=== PATIENT | female | born 1950 | race Caucasian/White ===

== ENCOUNTER 2016-11-27 14:24 | Outpatient (CLI) | payer MEDICARE, OTHER ==
[2016-11-27 18:15] LABS: BASOPHILS # (AUTO) 0.1 10^3/uL (0.0-0.1); BASOPHILS % (AUTO) 0.9 %; EOSINOPHILS % (AUTO) 0.7 %; HCT - HEMATOCRIT 41.5 % (37.0-47.0); HGB - HEMOGLOBIN 14.1 g/dL (12.0-16.0); LYMPHOCYTES # (AUTO) 1.4 10^3/uL (1.5-3.5); LYMPHOCYTES % (AUTO) 21.9 %; MEAN CORPUSCULAR HEMOGLOBIN 31.5 pg (27.0-31.0); MEAN CORPUSCULAR VOLUME 92.5 fL (81.0-99.0); MEAN PLATELET VOLUME 9.2 fL (7.9-10.8); MONOCYTES # (AUTO) 0.5 10^3/uL (0.0-1.0); NEUTROPHILS # (AUTO) 4.6 10^3/uL (1.5-6.6); NEUTROPHILS % (AUTO) 69.5 %; NUCLEATED RED BLOOD CELLS AUTO 0.1 /100WBC; RED BLOOD COUNT 4.49 10^6/uL (4.20-5.40); RED CELL DISTRIBUTION WIDTH 12.9 % (12.0-15.0); UNCORRECTED WHITE BLOOD COUNT 6.6 x10^3/uL; WHITE BLOOD COUNT 6.6 x10^3/uL (4.8-10.8)
[2016-11-27 18:35] LABS: ALBUMIN/GLOBULIN RATIO 1.9 (1.0-2.2); BILIRUBIN,TOTAL 0.6 mg/dL (0.2-1.0); BUN - BLOOD UREA NITROGEN 15 mg/dL (6-20); CALCIUM 9.8 mg/dL (8.5-10.3); CARBON DIOXIDE - CO2 26 mmol/L (21-32); CHLORIDE 105 mmol/L (101-111); CREATININE 0.7 mg/dL (0.4-1.0); GFR - MDRD 84 (>89); GLUCOSE 92 mg/dL (70-100); POTASSIUM 3.6 mmol/L (3.5-5.0); SODIUM 139 mmol/L (135-145); TOTAL PROTEIN 6.9 g/dL (6.7-8.2)
== END 2016-11-27 14:25 | disposition home or self-care (01) ==
LOC: LAB.F 14:24
PROVIDERS: ATTEND Internal Medicine
DX: F41.1 Generalized anxiety disorder (principal)
CPT/HCPCS: 36415; 80053; 84443; 85025

== ENCOUNTER 2016-11-30 13:33 | Outpatient (CLI) | payer MEDICARE, OTHER ==
--- NOTE | 2016-12-04 17:02 | Mammography Report ---
DIGITAL SCREENING MAMMOGRAM: 11/30/2016 CLINICAL INDICATION: A 66-year-old with history of benign biopsies for screening. COMPARISON: 07/2015, 07/2009. TECHNIQUE: Routine CC and MLO projections as well as bilateral laterally exaggerated craniocaudal vi ews were obtained of the breasts. The breasts again demonstrate heterogeneously dense fibroglandular parenchyma bilaterally. Post-biop sy changes are stable. Coarse and punctate, typically benign calcifications are present. No suspici ous masses, clustered microcalcifications, or regions of architectural distortion are identified. IMPRESSION: BENIGN FINDINGS. RECOMMENDATION: ROUTINE ANNUAL SCREENING UNLESS OTHERWISE CLINICALLY INDICATED. BIRADS CATEGORY: 2, BENIGN FINDINGS. STANDARD QUALIFYING STATEMENTS 1. This examination was reviewed with the aid of Computed-Aided Detection (CAD). 2. A negative or benign imaging report should not delay biopsy if clinically suspicious findings are present. Consider surgical consultation if warranted. More than 5% of cancers are not identified b y imaging. 3. Dense breasts may obscure an underlying neoplasm. JOB #: [id number] EXT JOB #:[id number]
== END 2016-11-30 13:34 | disposition home or self-care (01) ==
LOC: DI.S 13:33
PROVIDERS: ATTEND Internal Medicine
DX: Z12.31 Encounter for screening mammogram for malignant neoplasm of breast (principal)
CPT/HCPCS: 77067

== ENCOUNTER 2017-01-18 08:39 | Outpatient (CLI) | payer MEDICARE, OTHER ==
--- NOTE | 2017-01-18 09:55 | Ultrasound Report ---
COMPLETE ABDOMINAL ULTRASOUND: 01/18/2017 CLINICAL INDICATION: Epigastric pain. TECHNIQUE: Real-time scanning was performed with dealer compliance representative static images obtained. FINDINGS: The liver measures 15 cm. Multiple cysts are present, measuring up to 10.7 cm in diameter . The common bile duct measures 4 mm. No solid hepatic mass is seen. The gallbladder is normal. T he visualized pancreas is unremarkable. The right kidney measures 10.7 cm, and contains a 4.6 cm cor tical cyst. The left kidney measures 10.5 cm, and is unremarkable. The spleen measures 8.9 cm, and demonstrates normal echotexture. The abdominal aorta is normal in caliber. The inferior vena cava i s unremarkable. No free fluid is present. IMPRESSION: INCIDENTAL HEPATIC AND RENAL CYSTS. JOB #: [id number] EXT JOB #:[id number]
== END 2017-01-18 08:40 | disposition home or self-care (01) ==
LOC: DI 08:39
PROVIDERS: ATTEND Internal Medicine
DX: R10.13 Epigastric pain (principal)
CPT/HCPCS: 76700

== ENCOUNTER 2017-02-13 10:02 | Day surgery (SDC) | payer MEDICARE, OTHER ==
[2017-02-13] MEDS ORDERED: LACTATED RINGERS 1,000 ML IV ONE (10:35)
[2017-02-13] MEDS ORDERED: MIDAZOLAM 2 MG/2 ML VIAL IVP ONE (11:07)
[2017-02-13] MEDS ORDERED: fentaNYL 100 MCG/2 ML VIAL IVP ONE (11:07)
[2017-02-13 12:12] VITALS: BP 106/52
== END 2017-02-13 10:03 | disposition home or self-care (01) ==
LOC: SDS 10:02
PROVIDERS: ATTEND Internal Medicine
PROC: 0DB68ZX Excision of Stomach, Via Natural or Artificial Opening Endoscopic, Diagnostic (ICD-10-PCS; principal; 2017-02-13 11:00)
DX: K25.9 Gastric ulcer, unspecified as acute or chronic, without hemorrhage or perforation (principal); I10 Essential (primary) hypertension; Z87.891 Personal history of nicotine dependence
CPT/HCPCS: 43239; 88305; J7120

== ENCOUNTER 2017-11-26 11:05 | Outpatient (CLI) | payer MEDICARE, OTHER ==
[2017-11-26 17:33] LABS: BASOPHILS % (AUTO) 1.1 %; EOSINOPHILS % (AUTO) 0.9 %; HGB - HEMOGLOBIN 14.3 g/dL (12.0-16.0); LYMPHOCYTES # (AUTO) 1.1 10^3/uL (1.5-3.5); LYMPHOCYTES % (AUTO) 23.5 %; MEAN CORPUSCULAR HEMOGLOBIN 31.8 pg (27.0-31.0); MEAN CORPUSCULAR HGB CONC 33.6 g/dL (32.0-36.0); MEAN CORPUSCULAR VOLUME 94.5 fL (81.0-99.0); MEAN PLATELET VOLUME 9.3 fL (7.9-10.8); MONOCYTES # (AUTO) 0.4 10^3/uL (0.0-1.0); NEUTROPHILS % (AUTO) 66.5 %; PLT - PLATELET COUNT 184 10^3/uL (130-450); RED CELL DISTRIBUTION WIDTH 13.6 % (12.0-15.0); WHITE BLOOD COUNT 4.6 x10^3/uL (4.8-10.8)
[2017-11-26 18:34] LABS: PT - PROTHROMBIN TIME 11.5 secs (9.9-12.6)
[2017-11-26 19:24] LABS: ALBUMIN 4.1 g/dL (3.2-5.5); ALBUMIN/GLOBULIN RATIO 1.6 (1.0-2.2); ALKALINE PHOSPHATASE 39 IU/L (42-121); ALT ALANINE AMINOTRANSFERASE 18 IU/L (10-60); AST ASPARTATE AMINOTRANSFERASE 23 IU/L (10-42); BILIRUBIN,TOTAL 0.8 mg/dL (0.2-1.0); BUN - BLOOD UREA NITROGEN 24 mg/dL (6-20); CALCIUM 9.5 mg/dL (8.5-10.3); CARBON DIOXIDE - CO2 24 mmol/L (21-32); CHLORIDE 104 mmol/L (101-111); CHOL/HDL RATIO 3.4 (<4.4); CHOLESTEROL 247 mg/dL; CREATININE 0.6 mg/dL (0.4-1.0); GFR - MDRD 100 (>89); GLUCOSE 109 mg/dL (70-100); HDL CHOLESTEROL 73 mg/dL; LDL CHOLESTEROL,CALCULATED 161 mg/dL; LDL/HDL RATIO 2.2 (<4.4); SODIUM 138 mmol/L (135-145); TOTAL PROTEIN 6.6 g/dL (6.7-8.2); VLDL CHOLESTEROL 13 mg/dL
[2017-11-26 20:04] LABS: HB2 TOTAL 14.9 g/dL; HEMOGLOBIN A1C 0.52 g/dL; HEMOGLOBIN A1C % 5.3 % (4.6-6.2)
[2017-11-27 13:01] LABS: HEPATITIS B SURFACE ANTIGEN NON-REACTIVE (NON-REACTIVE)
[2017-11-27 14:07] LABS: HIV AG/AB 4TH GEN NON-REACTIVE (NON-REACTIVE)
[2017-11-27 15:10] LABS: HEPATITIS C ANTIBODY NON-REACTIVE (NON-REACTIVE)
== END 2017-11-26 11:06 | disposition home or self-care (01) ==
LOC: LAB.F 11:05
PROVIDERS: ATTEND Nurse Practitioner Family
DX: R42 Dizziness and giddiness (principal); Z11.59 Encounter for screening for other viral diseases; I10 Essential (primary) hypertension; Z13.1 Encounter for screening for diabetes mellitus; Z11.3 Encounter for screening for infections with a predominantly sexual mode of transmission; Z13.220 Encounter for screening for lipoid disorders; Z13.0 Encounter for screening for diseases of the blood and blood-forming organs and certain disorders involving the immune mechanism; T14.8XXA Other injury of unspecified body region, initial encounter
CPT/HCPCS: 36415; 80053; 80061; 81599; 83036; 83735; 84443; 85025; 85610; 86317; 86803; 87340; G0475; 83721; 86707; 87350; 87389

== ENCOUNTER 2017-12-23 10:07 | Outpatient (CLI) | payer MEDICARE, OTHER ==
--- NOTE | 2017-12-23 13:46 | Ultrasound Report ---
Reason: RIGHT RENAL CYST Procedure Date: 12/23/2017 Accession Number: [id number] / [id number] Procedure: US - Abdomen Limited CPT Code: FULL RESULT: EXAM: ABDOMEN ULTRASOUND LIMITED, RUQ EXAM DATE: 12/23/2017 10:58 AM. CLINICAL HISTORY: Right renal cyst. COMPARISON: ABDOMEN COMPLETE 01/18/2017 8:46 AM. TECHNIQUE: Real-time scanning was performed with static images obtained. FINDINGS: Liver: Liver background parenchyma demonstrates normal echotexture. Numerous cysts are seen throughout the liver most of which demonstrate septations. The largest cyst measures 10.4 x 6.2 x 8.9 cm and is septated. No definite solid components or vascular components are identified within these cysts. A 1 cm echogenic focus in the posterior right lobe of the liver is also seen. This is nonspecific but generally most often represents a hemangioma. The liver measures at least 16.8 cm. Main portal vein flow: Hepatopetal. Gallbladder: Normal. No stones, wall thickening, or sonographic Mercer's sign. Biliary System: CBD measures 5 mm. No intrahepatic or extrahepatic ductal dilatation. Other: The right kidney measures 10 cm and contains a dominant cyst measuring 4.0 x 4.1 x 4.3 cm without internal vascularity by color Doppler or an obvious solid component. Parenchymal flow to the kidneys preserved by color Doppler and there are no renal calculi and there is no hydronephrosis. IMPRESSION: Multicystic liver as well as a renal cyst. No vascularity or solid mass component is identified within the renal cyst or the hepatic cysts. RADIA
== END 2017-12-23 10:08 | disposition home or self-care (01) ==
LOC: DI 10:07
PROVIDERS: ATTEND Nurse Practitioner Family
DX: N28.1 Cyst of kidney, acquired (principal); K76.89 Other specified diseases of liver
CPT/HCPCS: 76705

== ENCOUNTER 2017-12-23 10:07 | Outpatient (CLI) | payer MEDICARE, OTHER ==
--- NOTE | 2017-12-24 14:37 | Mammography Report ---
Reason: SCREENING MAMMO Procedure Date: 12/23/2017 Accession Number: [id number] / [id number] Procedure: RANJITH - Screening Mammo Dig Bilat CPT Code: FULL RESULT: EXAM: Screening Mammo Dig Bilat DATE: 12/23/2017 3:56 PM CLINICAL HISTORY: 67-year-old female with history of early menses and prior surgical history of lumpectomy, one for a "tumor" and one for a cyst. TECHNIQUE: Bilateral CC and MLO views were obtained. COMPARISON: 11/30/2016, 07/11/2015, 08/23/2009. FINDINGS: The breasts demonstrate scattered fibroglandular densities bilaterally. Coarse typically benign calcifications are seen in the left breast. A biopsy clip is seen in the left breast. No suspicious masses, clustered microcalcifications, or regions of architectural distortion are identified. IMPRESSION: Benign findings RECOMMENDATION: Routine annual screening unless otherwise clinically indicated. BIRADS CATEGORY 2: Benign findings STANDARD QUALIFYING STATEMENTS: 1. This examination was not reviewed with the aid of Computer-Aided Detection (CAD). 2. A negative or benign imaging report should not delay biopsy if clinically suspicious findings are present. Consider surgical consultation if warrented. More than 5% of cancers are not identified by imaging. 3. Dense breasts may obscure an underlying neoplasm.
== END 2017-12-23 10:08 | disposition home or self-care (01) ==
LOC: DI 10:07
PROVIDERS: ATTEND Nurse Practitioner Family
DX: Z12.31 Encounter for screening mammogram for malignant neoplasm of breast (principal)
CPT/HCPCS: 77067

== ENCOUNTER 2018-08-21 09:54 | Outpatient (CLI) | payer MEDICARE, OTHER ==
--- NOTE | 2018-08-21 18:37 | XRAY Report ---
Reason: PAIN IN RIGHT ANKLE AND JOINTS OF RIGHT FOOT Procedure Date: 08/21/2018 Accession Number: [id number] / [id number] Procedure: XR - Ankle 2 View RT CPT Code: FULL RESULT: EXAM: RIGHT ANKLE RADIOGRAPHY EXAM DATE: 08/21/2018 09:57 AM. CLINICAL HISTORY: PAIN IN RIGHT ANKLE AND JOINTS OF RIGHT FOOT. COMPARISON: None. TECHNIQUE: 2 views. FINDINGS: Lack of an oblique view reduces exam sensitivity and specificity. Bones: No acute displaced fractures or suspicious bony lesion. Joints: Ankle mortise appears intact on these nonstressed images. Soft Tissues: No significant soft tissue swelling. IMPRESSION: No acute osseous abnormality demonstrated. RADIA
== END 2018-08-21 09:55 | disposition home or self-care (01) ==
LOC: DI 09:54
PROVIDERS: ATTEND Nurse Practitioner Family
DX: M25.571 Pain in right ankle and joints of right foot (principal)

== ENCOUNTER 2019-03-28 12:50 | Outpatient (CLI) | payer MEDICARE, OTHER ==
--- NOTE | 2019-03-29 05:55 | MRI Report ---
Reason: MIGRAINE WITH AURA Procedure Date: 03/28/2019 Accession Number: [id number] / [id number] Procedure: MRI - Brain W/O CPT Code: Final Report FULL RESULT: EXAM: MRI BRAIN WITHOUT CONTRAST EXAM DATE: 03/28/2019 01:53 PM. CLINICAL HISTORY: Headaches and dizziness. COMPARISON: None. TECHNIQUE: Multiplanar, multisequence T1-weighted and fluid-sensitive MR sequences of the brain were performed. Sequences optimized for routine evaluation. Other: None. IV Contrast: None. FINDINGS: Brain Volume: There is moderate generalized cerebral volume loss, in keeping with the patient's age. Parenchyma/Dura: No mass, acute infarct or hemorrhage. Mild scattered areas of T2 hyperintensity are seen in the subcortical, deep, and periventricular white matter of the bilateral cerebral hemispheres, typically reflecting chronic microvascular ischemic changes in a patient this age. A few chronic lacunar infarcts are noted in the bilateral cerebellar hemispheres and in the moses. There is no evidence of a Chiari type I malformation. Ventricles/Cisterns: No hydrocephalus. No abnormal extra-axial fluid collection or hemorrhage. Orbits: Symmetric and unremarkable. Sella Turcica: The pituitary gland, cavernous sinuses, suprasellar cistern and optic chiasm are unremarkable. IAC: Symmetric and unremarkable. Vasculature: Normal signal flow void is seen in the major arterial structures at the skull base. Sinuses: No acute appearing sinus disease. Bones: No focal pathologic appearing marrow signal changes. IMPRESSION: 1. No acute infarct, intracranial mass lesion, or hemorrhage. 2. Mild to moderate senescent changes with a few chronic lacunar infarcts. RADIA
== END 2019-03-28 12:51 | disposition home or self-care (01) ==
LOC: DI 12:50
PROVIDERS: ATTEND Nurse Practitioner Family
DX: G43.109 Migraine with aura, not intractable, without status migrainosus (principal); Z86.73 Personal history of transient ischemic attack (TIA), and cerebral infarction without residual deficits
CPT/HCPCS: 70551

== ENCOUNTER 2019-05-11 10:31 | Emergency (ER) | payer MEDICARE, OTHER ==
[2019-05-11 11:07] LABS: BASOPHILS # (AUTO) 0.1 10^3/uL (0.0-0.1); BASOPHILS % (AUTO) 0.6 %; EOSINOPHILS # (AUTO) 0.2 10^3/uL (0.0-0.7); EOSINOPHILS % (AUTO) 2.6 %; HGB - HEMOGLOBIN 13.3 g/dL (12.0-16.0); LYMPHOCYTES # (AUTO) 1.2 10^3/uL (1.5-3.5); LYMPHOCYTES % (AUTO) 13.7 %; MEAN CORPUSCULAR HGB CONC 33.1 g/dL (32.0-36.0); MEAN CORPUSCULAR VOLUME 93.7 fL (81.0-99.0); MEAN PLATELET VOLUME 10.8 fL (7.9-10.8); MONOCYTES # (AUTO) 0.8 10^3/uL (0.0-1.0); MONOCYTES % (AUTO) 9.3 %; NEUTROPHILS # (AUTO) 6.4 10^3/uL (1.5-6.6); NEUTROPHILS % (AUTO) 73.5 %; PLT - PLATELET COUNT 178 10^3/uL (130-450); RED BLOOD COUNT 4.29 10^6/uL (4.20-5.40); RED CELL DISTRIBUTION WIDTH 12.8 % (12.0-15.0); WHITE BLOOD COUNT 8.8 x10^3/uL (4.8-10.8)
[2019-05-11 11:17] LABS: ALBUMIN 3.7 g/dL (3.2-5.5); ALBUMIN/GLOBULIN RATIO 1.3 (1.0-2.2); BILIRUBIN,TOTAL 0.7 mg/dL (0.2-1.0); CALCIUM 9.1 mg/dL (8.5-10.3); CREATININE 0.6 mg/dL (0.4-1.0); TOTAL PROTEIN 6.6 g/dL (6.7-8.2)
--- NOTE | 2019-05-11 11:51 | ED Physician Documentation ---
PD HPI FEMALE - Stated complaint Stated Complaint: FEMALE - Chief complaint Chief Complaint: Abd Pain - History obtained from History obtained from: Patient - History of Present Illness Timing - onset: Yesterday Timing - details: Gradual onset Associated symptoms: No: Fever, Dysuria Recently seen: Not recently seen - Additional information Additional information: This is a 68-year-old woman who presents with complaints that she started to have abdominal cramping 2 days ago and then had 8 hours worth of chills yesterday she checked her temperature and it was "low". She was having waves of crampy intense pain in her abdomen now about a 6 out of 10 dull, ache. She was only able to give a little bit of poop. No she does have a history of diverticulitis with 3 bowel resections most recent surgery was 10 years ago. She is had no nausea or vomiting. No dysuria although she was sitting at her in her chair and felt a burning sensation in the perineum this morning. She is not seen blood in the urine or stool. She denies sore throat stuffy nose or cough. She reports chronic dizziness but no loss of consciousness. She made the decision not to eat today because she was concerned she might be obstructed. Review of Systems Constitutional: reports: Chills. denies: Fever Ears: denies: Ear pain Nose: denies: Rhinorrhea / runny nose Throat: denies: Sore throat Respiratory: denies: Cough GI: reports: Abdominal Pain, Constipation. 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 Derm: Skin cancer surgery - Present Medications Home Medications: Ambulatory Orders Medication Instructions Recorded Confirmed Triamterene/Hydrochlorothiazid 1 DAILY 02/13/17 [Triamterene-Hctz 37.5-25 mg Cp] lisinopriL [Lisinopril] 1 DAILY 02/13/17 Amoxicillin/Potassium Clav 2 each PO BID #40 tab.er.12h 05/11/19 [Augmentin Xr 1,000-62.5 Tab] Ondansetron Odt [Zofran] 4 mg TL Q6H PRN #10 tablet 05/11/19 - Allergies Allergies/Adverse Reactions: Allergies Allergy/AdvReac Type Severity Reaction Status Date / Time ciprofloxacin [From Cipro] AdvReac Anaphylaxis Verified 05/11/19 10:40 ciprofloxacin HCl * AdvReac Anaphylaxis Verified 05/11/19 10:40 [From Cipro] codeine AdvReac Nausea Verified 05/11/19 10:40 metronidazole [From Flagyl] AdvReac Anaphylaxis Verified 05/11/19 10:40 - Social History Does the pt smoke?: No Smoking Status: Former smoker Does the pt drink ETOH?: No Does the pt have substance abuse?: No - Immunizations Immunizations are current?: Yes - POLST Patient has POLST: No PD ED PE NORMAL - Vitals Vital signs reviewed: Yes - General General: Alert and oriented X 3, No acute distress, Well developed/nourished, Other (Pleasant 68-year-old woman is not in any acute distress.) - HEENT HEENT: Atraumatic, PERRL, Moist mucous membranes - Neck Neck: Supple, no meningeal sign, No adenopathy - Cardiac Cardiac: RRR, No murmur, Strong equal pulses - Respiratory Respiratory: No respiratory distress, Clear bilaterally - Abdomen Abdomen: Soft, Non tender, Other (High-pitched tinkling bowel sounds.) - Derm Derm: Normal color, Warm and dry, No rash - Neuro Neuro: Alert and oriented X 3, public aid eligibility assistant 2-12 intact, No motor deficit, No sensory deficit, Normal speech - Psych Psych: Normal mood, Normal affect Results - Vitals Vitals: Vital Signs - 24 hr 05/11/19 05/11/19 05/11/19 10:38 11:35 13:40 Temperature 36.9 C 37.2 C 37.1 C Heart Rate 87 76 76 Respiratory 18 18 16 Rate Blood Pressure 116/72 113/69 119/80 O2 Saturation 97 99 97 Oxygen O2 Source Room air - Labs Labs: Laboratory Tests 05/11/19 05/11/19 05/11/19 10:55 10:55 12:10 WBC 8.8 RBC 4.29 Hgb 13.3 Hct 40.2 MCV 93.7 MCH 31.0 MCHC 33.1 RDW 12.8 Plt Count 178 MPV 10.8 Neut # (Auto) 6.4 Lymph # (Auto) 1.2 L [place] # (Auto) 0.8 Eos # (Auto) 0.2 Baso # (Auto) 0.1 Absolute Nucleated RBC 0.00 Nucleated RBC % 0.0 Sodium 141 Potassium 3.7 Chloride 105 Carbon Dioxide 26 Anion Gap 10.0 BUN 16 Creatinine 0.6 Estimated GFR (MDRD) 99 Glucose 139 H Calcium 9.1 Total Bilirubin 0.7 AST 21 ALT 19 Alkaline Phosphatase 45 Total Protein 6.6 L Albumin 3.7 Globulin 2.9 Albumin/Globulin Ratio 1.3 Lipase 30 Urine Color DARK YELLOW Urine Clarity CLEAR Urine pH 5.5 Ur Specific [place] >=1.030 H Urine Protein NEGATIVE Urine Glucose (UA) NEGATIVE Urine Ketones TRACE Urine Occult Blood MODERATE H Urine Nitrite NEGATIVE Urine Bilirubin NEGATIVE Urine Urobilinogen 0.2 (NORMAL) Ur Leukocyte Esterase NEGATIVE Urine RBC 6-10 H Urine WBC 0-3 Ur Squamous Epith Cells FEW Squamous Urine Crystals 6-10 Calcium Oxalate Urine Bacteria Few Urine Mucus Marked Strands Ur Microscopic Review INDICATED Urine Culture Comments NOT INDICATED PD MEDICAL DECISION MAKING - ED course Complexity details: reviewed results, re-evaluated patient, d/w patient ED course: The patient has a normal white blood cell count. Her urine is very concentrated. Her CT did show some inflammatory changes consistent with diverticulitis but no obvious abscess pocket. She was given Zosyn IV. Will discharge on Augmentin and she is going to monitor closely at home with a bland diet. If she is not showing improvement in 48 hours she will sooner if she develops fever, she is vomiting and cannot keep anything down, has blood in the stool or has increasing pain. Departure - Departure Disposition: 01 Home, Self Care Clinical Impression: Diverticulitis large intestine Qualifiers: Diverticulitis bleeding: without bleeding Diverticulitis complication: without perforation or abscess Qualified Code(s): K57.32 - Diverticulitis of large intestine without perforation or abscess without bleeding Condition: Good Instructions: Diverticulitis Dc, ED Diverticulitis Follow-Up: JESENIA DENNIS ARNP [Primary Care Provider] - Prescriptions: Amoxicillin/Potassium Clav [Augmentin Xr 1,000-62.5 Tab] 2 each PO BID #40 tab.er.12h Ondansetron Odt [Zofran] 4 mg TL Q6H PRN #10 tablet PRN Reason: Nausea / Vomiting Comments: Take the antibiotic twice a day as prescribed. I would highly recommend that you use probiotics while you are taking the antibiotic and for 2 weeks afterwards. May use ibuprofen for discomfort. I have provided a prescription for Zofran if needed for some nausea. Given your significant past history with the diverticulitis I would recommend a recheck with your primary care provider in 2 to 3 days. Follow-up for sure if you are not feeling better in 48 hours or sooner if you have increasing pain, you are vomiting and cannot keep anything down, you see blood in your stool or develop a fever.
[2019-05-11] MEDS ORDERED: IOVERSOL 320 100 ML VIAL IVP ONE ×2 (12:20→13:20)
[2019-05-11 12:30] LABS: GLUCOSE, URINE (UA) NEGATIVE (NEGATIVE); KETONES,URINE (UA) TRACE mg/dL (NEGATIVE); LEUKOCYTE ESTERASE, URINE NEGATIVE (NEGATIVE); NITRITE,URINE NEGATIVE (NEGATIVE); OCCULT BLOOD,URINE MODERATE (NEGATIVE); PH,URINE 5.5 PH (5.0-7.5); PROTEIN,URINE NEGATIVE (NEGATIVE); UROBILINOGEN,URINE 0.2 (NORMAL) E.U./dL (NORMAL)
[2019-05-11 12:34] LABS: BILIRUBIN,URINE NEGATIVE (NEGATIVE); CLARITY,URINE CLEAR (CLEAR); ICTOTEST,URINE NEGATIVE
[2019-05-11 12:38] LABS: BACTERIA,URINE Few /HPF (None Seen); MUCUS,URINE Marked Strands; SQUAMOUS EPITHELIAL CELL,UR FEW Squamous (<= Few)
[2019-05-11 12:39] LABS: CRYSTALS,URINE 6-10 Calcium Oxalate /LPF
--- NOTE | 2019-05-11 13:17 | CT Report ---
Reason: abd pain Procedure Date: 05/11/2019 Accession Number: [id number] / [id number] Procedure: CT - Abdomen/Pelvis W CPT Code: Final Report FULL RESULT: EXAM: CT ABDOMEN AND PELVIS EXAM DATE: 05/11/2019 12:52 PM. CLINICAL HISTORY: Abd pain. History of diverticulitis, bowel surgery, hernia repair, hepatic cysts, and renal cysts. COMPARISONS: None. TECHNIQUE: Routine helical CT imaging was performed through the abdomen and pelvis. IV contrast: OPTI 320 100ML. Enteric contrast: No. Reconstructions: Coronal and sagittal. In accordance with CT protocol optimization, one or more of the following dose reduction techniques were utilized for this exam: automated exposure control, adjustment of mA and/or KV based on patient size, or use of iterative reconstructive technique. FINDINGS: Lung Bases: Unremarkable. Liver: Multiple cysts and at least one hemangioma. Otherwise unremarkable. Gallbladder/Bile Ducts: Surgically absent. No ductal dilation. Spleen: Small cyst or hemangioma. Otherwise unremarkable. Pancreas: Normal. Adrenal Glands: Normal. Kidneys: Multiple cysts. Otherwise unremarkable. No hydronephrosis. Peritoneal Cavity/Bowel: Moderate to marked colonic diverticulosis with mild wall thickening and hazy infiltration of fat adjacent to the sigmoid colon. No localized fluid collection. Minimal free fluid in the pelvis. No free air, bowel dilation, or lymphadenopathy. Postoperative changes. Pelvic Organs: Decompressed urinary bladder. Absent uterus. Vasculature: No aneurysms or other significant abnormality. Bones: No significant abnormality. Other: Postoperative changes of anterior abdominal wall. IMPRESSION: 1. Moderate to marked diverticulosis with mild acute diverticulitis. 2. Postoperative and other chronic findings as noted. RADIA
[2019-05-11] MEDS ORDERED: PIPERACILLIN/TAZOBACTAM 3.375 GM in SODIUM CHLORIDE 0.9% MINIBAG 100 ML IV STA (13:34)
[2019-05-11 14:27] VITALS: BP 105/72
== END 2019-05-11 14:26 | disposition home or self-care (01) ==
LOC: ED 10:31
DX: K57.32 Diverticulitis of large intestine without perforation or abscess without bleeding (principal); I10 Essential (primary) hypertension; Z87.891 Personal history of nicotine dependence
CPT/HCPCS: 36415; 74177; 80053; 81001; 83690; 85025; 96365; 99284; Q9967; 81003; 87086

== ENCOUNTER 2019-07-22 07:46 | Emergency (ER) | payer MEDICARE, OTHER ==
--- NOTE | 2019-07-22 08:25 | ED Physician Documentation ---
History of Present Illness - Stated complaint Stated Complaint: STROKE LIKE SYMPTOMS - Chief complaint Chief Complaint: Neuro - History obtained from History obtained from: Patient - History of Present Illness Timing: Today Pain level max: 0 Pain level now: 0 - Additonal information Additional information: 68-year-old female presents to the emergency department stating that she felt like she was getting a migraine today and had a visual aura. She took an Imitrex, few minutes later both of her legs felt very heavy followed by both of her arms. She sat down. She had tingling in the perioral area as well. This lasted approximately 10 minutes and then her symptoms resolved. She came in for evaluation. She did not have any syncope. No loss of consciousness. No urinary incontinence. No back pain. Nothing makes it better or worse. Nursing notes state urinary incontinence, but I confirmed twice with the patient that this did not occur. Review of Systems Ten Systems: 10 systems reviewed and negative Constitutional: denies: Fever, Chills, Myalgias Ears: denies: Ear pain Nose: denies: Rhinorrhea / runny nose, Congestion Cardiac: denies: Chest pain / pressure Respiratory: denies: Dyspnea, Cough GI: denies: Nausea, Vomiting, Diarrhea : denies: Dysuria Skin: denies: Rash Musculoskeletal: denies: Neck pain, Back pain Neurologic: denies: Headache PD PAST MEDICAL HISTORY - Past Medical History Past Medical History: Yes Cardiovascular: Hypertension, Arrhythmia Respiratory: None Neuro: CVA, Migraines, Seizure disorder Endocrine/Autoimmune: None GI: Diverticulitis, Other : None HEENT: None Psych: None Musculoskeletal: None Derm: Eczema - Past Surgical History Past Surgical History: Yes General: Bowel surgery 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 Derm: Skin cancer surgery - Present Medications Home Medications: Ambulatory Orders Medication Instructions Recorded Confirmed Amlodipine Besylate [Norvasc] 2.5 mg PO DAILY 07/22/19 07/22/19 Aspirin Chewable [St Andi 81 mg PO DAILY 07/22/19 07/22/19 Aspirin] Atorvastatin Calcium 40 mg PO DAILY 07/22/19 07/22/19 Hyoscyamine [Levsin] 0.125 mg PO PRN PRN 07/22/19 07/22/19 Ibuprofen [Motrin] 600 mg PO Q6H PRN 04/22/20 04/22/20 SUMAtriptan succinate [Sumatriptan 50 mg PO PRN PRN 07/22/19 07/22/19 Succinate] - Allergies Allergies/Adverse Reactions: Allergies Allergy/AdvReac Type Severity Reaction Status Date / Time ciprofloxacin [From Cipro] AdvReac Anaphylaxis Verified 07/22/19 08:06 ciprofloxacin HCl * AdvReac Anaphylaxis Verified 07/22/19 08:06 [From Cipro] codeine AdvReac Nausea Verified 07/22/19 08:06 metronidazole [From Flagyl] AdvReac Anaphylaxis Verified 07/22/19 08:06 - Social History Does the pt smoke?: No Smoking Status: Never smoker Does the pt drink ETOH?: No Does the pt have substance abuse?: No - Immunizations Immunizations are current?: Yes - POLST Patient has POLST: No PD ED PE NORMAL - Vitals Vital signs reviewed: Yes - General General: Alert and oriented X 3, No acute distress - HEENT HEENT: Atraumatic, PERRL, EOMI, Moist mucous membranes - Neck Neck: Supple, no meningeal sign, No bony TTP - Cardiac Cardiac: RRR, Strong equal pulses - Respiratory Respiratory: No respiratory distress, Clear bilaterally - Abdomen Abdomen: Soft, Non tender, Non distended - Back Back: No spinal TTP - Derm Derm: Warm and dry, No rash - Extremities Extremities: No calf tenderness / cord - Neuro Neuro: Alert and oriented X 3, 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, No motor deficit, No sensory deficit, Normal speech Eye Opening: Spontaneous Motor: Obeys Commands Verbal: Oriented GCS Score: 15 - Psych Psych: Normal mood, Normal affect Results - Vitals Vitals: Vital Signs - 24 hr 07/22/19 07/22/19 07/22/19 08:01 08:11 09:00 Temperature 36.0 C L Heart Rate 62 64 59 L Respiratory 16 12 16 Rate Blood Pressure 159/91 H 142/82 H 134/74 H O2 Saturation 99 99 99 07/22/19 10:01 Temperature Heart Rate 59 L Respiratory 16 Rate Blood Pressure 124/78 O2 Saturation 99 Oxygen O2 Source Room air - EKG (time done) 0754 Rate: Rate (enter#) (59) Rhythm: NSR [place]: Normal Intervals: Normal SC Ischemia: Q waves (V1, V2), T wave inversion (3, aVF), Other (Otherwise normal ST segments) - Labs Labs: Laboratory Tests 07/22/19 07/22/19 07/22/19 08:03 08:03 08:03 WBC 5.9 RBC 4.66 Hgb 14.6 Hct 43.9 MCV 94.2 MCH 31.3 H MCHC 33.3 RDW 13.0 Plt Count 191 MPV 10.8 Neut # (Auto) 3.9 Lymph # (Auto) 1.2 L [place] # (Auto) 0.5 Eos # (Auto) 0.2 Baso # (Auto) 0.1 Absolute Nucleated RBC 0.00 Nucleated RBC % 0.0 Sodium 141 Potassium 3.4 L Chloride 106 Carbon Dioxide 26 Anion Gap 9.0 BUN 17 Creatinine 0.7 Estimated GFR (MDRD) 83 L Glucose 109 H POC Whole Bld Glucose Calcium 9.0 Magnesium 2.2 Total Bilirubin 0.8 AST 29 ALT 32 Alkaline Phosphatase 73 Troponin I High Sens 5.5 Total Protein 6.7 Albumin 4.1 Globulin 2.6 Albumin/Globulin Ratio 1.6 Lipase 60 H Urine Color Urine Clarity Urine pH Ur Specific [place] Urine Protein Urine Glucose (UA) Urine Ketones Urine Occult Blood Urine Nitrite Urine Bilirubin Urine Urobilinogen Ur Leukocyte Esterase Urine RBC Urine WBC Ur Squamous Epith Cells Urine Bacteria Urine Casts Ur Microscopic Review Urine Culture Comments 07/22/19 07/22/19 08:11 08:56 WBC RBC Hgb Hct MCV MCH MCHC RDW Plt Count MPV Neut # (Auto) Lymph # (Auto) [place] # (Auto) Eos # (Auto) Baso # (Auto) Absolute Nucleated RBC Nucleated RBC % Sodium Potassium Chloride Carbon Dioxide Anion Gap BUN Creatinine Estimated GFR (MDRD) Glucose POC Whole Bld Glucose 100 Calcium Magnesium Total Bilirubin AST ALT Alkaline Phosphatase Troponin I High Sens Total Protein Albumin Globulin Albumin/Globulin Ratio Lipase Urine Color LIGHT YELLOW Urine Clarity CLEAR Urine pH 6.0 Ur Specific [place] <=1.005 Urine Protein NEGATIVE Urine Glucose (UA) NEGATIVE Urine Ketones NEGATIVE Urine Occult Blood SMALL H Urine Nitrite NEGATIVE Urine Bilirubin NEGATIVE Urine Urobilinogen 0.2 (NORMAL) Ur Leukocyte Esterase NEGATIVE Urine RBC 0-5 Urine WBC 0-3 Ur Squamous Epith Cells FEW Squamous Urine Bacteria Few Urine Casts 0-2 Hyaline Casts Ur Microscopic Review INDICATED Urine Culture Comments NOT INDICATED - Rads (name of study) Head CT Radiology: Prelim report reviewed, EMP read contemporaneously, See rad report (No acute intracranial abnormality. 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 No focal neurological deficits. No one-sided deficits. No signs of stroke. No signs of acute coronary syndrome. Symptoms resolved prior to arrival in the emergency department. We will have her follow-up with her doctor for further care. Patient counseled regarding signs and symptoms for which I believe and urgent re-evaluation would be necessary. Patient with good understanding of and agreement to plan and is comfortable going home at this time This document was made in part using voice recognition software. While efforts are made to proofread this document, sound alike and grammatical errors may occur. Departure - Departure Disposition: 01 Home, Self Care Clinical Impression: Paresthesia Migraine Qualifiers: Migraine type: with aura Status migrainosus presence: without status migrainosus Intractability: not intractable Qualified Code(s): G43.109 - Migraine with aura, not intractable, without status migrainosus Condition: Good Instructions: ED Paraesthesias Follow-Up: JESENIA DENNIS ARNP [Primary Care Provider] - Within 1 week Comments: Follow-up with your doctor for further care. Continue your medications at home. Return if you worsen. Discharge Date/Time: 07/22/19 10:02 NIHSS - Time Time: 08:07 - Level of Consciousness Level of consciousness: (0) Alert, Keenly responsive LOC Questions: (0) Answers both Q's correct LOC Commands: (0) Performs both correctly - Gaze Best Gaze: (0) Normal - Visual Visual: (0) No loss - Facial Palsy Facial Palsy: (0) Normal, symmetrical movement - Motor Arms (both separate) Motor Arm (right): (0) No drift Motor Arm (left): (0) No drift - Motor Legs (both separate) Motor Leg (right): (0) No drift Motor Leg (left): (0) No drift - Limb Ataxia Limb Ataxia: (0) Absent - Sensory Sensory: (0) Normal - Best Language Best Language: (0) No aphasia - Dysarthria Dysarthria: (0) Normal - Extinction and Inattention (formally neg Extinction and inattention: (0) No abnormality - Total Score/Results Total Score/Result: 0
[2019-07-22 08:27] LABS: BASOPHILS # (AUTO) 0.1 10^3/uL (0.0-0.1); EOSINOPHILS # (AUTO) 0.2 10^3/uL (0.0-0.7); EOSINOPHILS % (AUTO) 3.2 %; HGB - HEMOGLOBIN 14.6 g/dL (12.0-16.0); LYMPHOCYTES # (AUTO) 1.2 10^3/uL (1.5-3.5); MEAN CORPUSCULAR HEMOGLOBIN 31.3 pg (27.0-31.0); MEAN CORPUSCULAR HGB CONC 33.3 g/dL (32.0-36.0); MEAN CORPUSCULAR VOLUME 94.2 fL (81.0-99.0); MEAN PLATELET VOLUME 10.8 fL (7.9-10.8); MONOCYTES # (AUTO) 0.5 10^3/uL (0.0-1.0); MONOCYTES % (AUTO) 8.5 %; NEUTROPHILS # (AUTO) 3.9 10^3/uL (1.5-6.6); NEUTROPHILS % (AUTO) 66.1 %; PLT - PLATELET COUNT 191 10^3/uL (130-450); RED BLOOD COUNT 4.66 10^6/uL (4.20-5.40); WHITE BLOOD COUNT 5.9 x10^3/uL (4.8-10.8)
[2019-07-22 08:36] LABS: ALBUMIN 4.1 g/dL (3.2-5.5); ALBUMIN/GLOBULIN RATIO 1.6 (1.0-2.2); BILIRUBIN,TOTAL 0.8 mg/dL (0.2-1.0); CREATININE 0.7 mg/dL (0.4-1.0); MAGNESIUM 2.2 mg/dL (1.7-2.8); TOTAL PROTEIN 6.7 g/dL (6.7-8.2)
--- NOTE | 2019-07-22 08:50 | XRAY Report ---
Reason: weakness Procedure Date: 07/22/2019 Accession Number: [id number] / [id number] Procedure: XR - Chest 1 View X-Ray CPT Code: 22125 Final Report FULL RESULT: EXAM: CHEST RADIOGRAPHY EXAM DATE: 07/22/2019 08:32 AM. CLINICAL HISTORY: Weakness. COMPARISON: None. TECHNIQUE: 1 view. FINDINGS: Lungs/Pleura: Moderate hyperinflation. No consolidations identified. Mediastinum: Within exam limitations, the cardiomediastinal contour is normal. Other: None. IMPRESSION: No lung consolidation is identified. Hyperinflation. RADIA
--- NOTE | 2019-07-22 08:54 | CT Report ---
Reason: paresthesias Procedure Date: 07/22/2019 Accession Number: [id number] / [id number] Procedure: CT - HEAD WO CPT Code: Final Report FULL RESULT: EXAM: CT HEAD EXAM DATE: 07/22/2019 08:37 AM. CLINICAL HISTORY: Paresthesias. COMPARISON: HEAD WO 07/22/2019 8:24 AM BRAIN W/O 03/28/2019 1:21 PM. TECHNIQUE: Multiaxial CT images were obtained from the foramen magnum to the vertex. Reformats: Sagittal and coronal. IV contrast: None. In accordance with CT protocol optimization, one or more of the following dose reduction techniques were utilized for this exam: automated exposure control, adjustment of mA and/or KV based on patient size, or use of iterative reconstructive technique. FINDINGS: No acute intracranial hemorrhage or midline shift. No mass-effect. Stable mild and symmetric cortical atrophic changes. Tiny old lacunar infarcts are again noted of the cerebellum, better seen on comparison MRI. A lacunar infarct of the moses on previous MRI is not well seen on current CT. The calvarium appears intact. Imaged portions of the facial sinuses appear clear. IMPRESSION: No acute intracranial hemorrhage or mass-effect identified. 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 If additional imaging indicated, follow-up MRI may be helpful for further evaluation. RADIA
[2019-07-22 09:07] LABS: BILIRUBIN,URINE NEGATIVE (NEGATIVE); GLUCOSE, URINE (UA) NEGATIVE (NEGATIVE); KETONES,URINE (UA) NEGATIVE (NEGATIVE); LEUKOCYTE ESTERASE, URINE NEGATIVE (NEGATIVE); NITRITE,URINE NEGATIVE (NEGATIVE); OCCULT BLOOD,URINE SMALL (NEGATIVE); PROTEIN,URINE NEGATIVE (NEGATIVE); UROBILINOGEN,URINE 0.2 (NORMAL) E.U./dL (NORMAL)
[2019-07-22 09:23] LABS: CLARITY,URINE CLEAR (CLEAR)
[2019-07-22 09:24] LABS: BACTERIA,URINE Few /HPF (None Seen); RBC,URINE 0-5 /HPF (0-5); SQUAMOUS EPITHELIAL CELL,UR FEW Squamous (<= Few)
[2019-07-22 09:25] LABS: CASTS, URINE 0-2 Hyaline Casts /LPF
[2019-07-22 10:02] VITALS: BP 124/78
== END 2019-07-22 10:02 | disposition home or self-care (01) ==
LOC: ED 07:46
DX: G43.109 Migraine with aura, not intractable, without status migrainosus (principal); R20.2 Paresthesia of skin; I10 Essential (primary) hypertension; I49.9 Cardiac arrhythmia, unspecified; G40.909 Epilepsy, unspecified, not intractable, without status epilepticus; Z86.73 Personal history of transient ischemic attack (TIA), and cerebral infarction without residual deficits; Z79.82 Long term (current) use of aspirin; Z79.1 Long term (current) use of non-steroidal anti-inflammatories (NSAID)
CPT/HCPCS: 36415; 70450; 71045; 80053; 81001; 81003; 83690; 83735; 84484; 85025; 87086; 93005; 99284

== ENCOUNTER 2019-07-30 12:14 | Emergency (ER) | payer MEDICARE, OTHER ==
--- NOTE | 2019-07-30 12:37 | ED Physician Documentation ---
PD HPI CHEST PAIN - Stated complaint Stated Complaint: LOW PULSE-SENT BY PCP - Chief complaint Chief Complaint: Cardiac - History obtained from History obtained from: Patient (This is a very pleasant 68-year-old woman with no history of heart disease. She had a Holter monitor in April per her report that was normal except for 2 PACs. Over the last few days after being seen here for a complicated migraine she is just felt off. She is been generally dizzy and weak. At one point she felt tingling throughout her body that felt like hot needles poking her everywhere. It was symmetric. This morning and it was noted that her heart rate on a blood pressure cuff was low, in the 40s so she was sent here for further evaluation and treatment. She also notes that her pulse pressure has been higher with lower diastolics than normal for her, often in the 60s.) Review of Systems Constitutional: denies: Fever, Chills Throat: denies: Dental pain / toothache, Sore throat Cardiac: denies: Chest pain / pressure, Palpitations, Pedal edema, Calf pain Respiratory: denies: Dyspnea, Cough PD PAST MEDICAL HISTORY - Past Medical History Cardiovascular: Hypertension, Arrhythmia Respiratory: None Neuro: CVA, Migraines, Seizure disorder Endocrine/Autoimmune: None GI: Diverticulitis, Other : None HEENT: None Psych: None Musculoskeletal: None Derm: Eczema - Past Surgical History Past Surgical History: Yes General: Bowel surgery 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 Derm: Skin cancer surgery - Present Medications Home Medications: Ambulatory Orders Medication Instructions Recorded Confirmed Amlodipine Besylate [Norvasc] 2.5 mg PO DAILY 07/22/19 07/22/19 Aspirin Chewable [St Andi 81 mg PO DAILY 07/22/19 07/22/19 Aspirin] Atorvastatin Calcium 40 mg PO DAILY 07/22/19 07/22/19 Hyoscyamine [Levsin] 0.125 mg PO PRN PRN 07/22/19 07/22/19 Ibuprofen [Motrin] 600 mg PO Q6H PRN 07/22/19 07/22/19 SUMAtriptan succinate [Sumatriptan 50 mg PO PRN PRN 07/22/19 07/22/19 Succinate] - Allergies Allergies/Adverse Reactions: Allergies Allergy/AdvReac Type Severity Reaction Status Date / Time ciprofloxacin [From Cipro] AdvReac Anaphylaxis Verified 07/30/19 12:27 ciprofloxacin HCl * AdvReac Anaphylaxis Verified 07/30/19 12:27 [From Cipro] codeine AdvReac Nausea Verified 07/30/19 12:27 metronidazole [From Flagyl] AdvReac Anaphylaxis Verified 07/30/19 12:27 - Social History Does the pt smoke?: No Smoking Status: Never smoker Does the pt drink ETOH?: No Does the pt have substance abuse?: No - Immunizations Immunizations are current?: Yes - POLST Patient has POLST: No PD ED PE NORMAL - Vitals Vital signs reviewed: Yes - General General: Alert and oriented X 3, No acute distress - HEENT HEENT: PERRL, EOMI - Neck Neck: Supple, no meningeal sign, No bony TTP - Cardiac Cardiac: RRR, No murmur - Respiratory Respiratory: No respiratory distress, Clear bilaterally - Abdomen Abdomen: Non tender - Extremities Extremities: Other (She does have some asymmetry of the calves with the right being larger than the left. There is no tenderness, no evidence of cellulitis.) - Neuro Neuro: Alert and oriented X 3, Normal speech Results - Vitals Vitals: Vital Signs - 24 hr 07/30/19 12:29 Temperature 37.0 C Heart Rate 64 Respiratory 12 Rate Blood Pressure 146/81 H O2 Saturation 96 Oxygen O2 Source Room air - EKG (time done) 1221 Rate: Rate (enter#) (62) Rhythm: NSR [place]: Normal Intervals: Normal HI QRS: Normal Ischemia: Non specific changes. No: ST elevation c/w ischemia, ST depression Computer interpretation: Agree with computer - Labs Labs: Laboratory Tests 07/30/19 07/30/19 07/30/19 12:35 12:35 12:35 WBC 6.3 RBC 4.24 Hgb 13.3 Hct 39.3 MCV 92.7 MCH 31.4 H MCHC 33.8 RDW 12.8 Plt Count 192 MPV 10.3 Neut # (Auto) 4.2 Lymph # (Auto) 1.4 L [place] # (Auto) 0.6 Eos # (Auto) 0.0 Baso # (Auto) 0.1 Absolute Nucleated RBC 0.00 Nucleated RBC % 0.0 D-Dimer 208.8 Sodium 141 Potassium 3.6 Chloride 108 Carbon Dioxide 27 Anion Gap 6.0 BUN 14 Creatinine 0.6 Estimated GFR (MDRD) 99 Glucose 106 H Calcium 8.6 Magnesium 2.2 Total Bilirubin 0.8 AST 25 ALT 27 Alkaline Phosphatase 72 Troponin I High Sens Total Protein 6.7 Albumin 4.0 Globulin 2.7 Albumin/Globulin Ratio 1.5 Lipase 31 07/30/19 12:35 WBC RBC Hgb Hct MCV MCH MCHC RDW Plt Count MPV Neut # (Auto) Lymph # (Auto) [place] # (Auto) Eos # (Auto) Baso # (Auto) Absolute Nucleated RBC Nucleated RBC % D-Dimer Sodium Potassium Chloride Carbon Dioxide Anion Gap BUN Creatinine Estimated GFR (MDRD) Glucose Calcium Magnesium Total Bilirubin AST ALT Alkaline Phosphatase Troponin I High Sens 4.1 Total Protein Albumin Globulin Albumin/Globulin Ratio Lipase PD MEDICAL DECISION MAKING - ED course ED course: 68-year-old woman presents with low pulse readings on a blood pressure machine at home which were not corroborated here on telemetry. We also walked her in the [place] and was with without symptoms of bradycardia. She does have other symptoms which I suspect given the time course are likely related to her statin and she was advised to discuss this with her physician. Departure - Departure Disposition: 01 Home, Self Care Clinical Impression: Dizziness Condition: Good Record reviewed to determine appropriate education?: Yes Instructions: ED Dizziness UKO Comments: As discussed, there was no evidence of low heart rates here. He is return if worsening, your other symptoms I suspect may be related to your statin, discu ssed this with your doctor.
[2019-07-30 12:48] LABS: BASOPHILS # (AUTO) 0.1 10^3/uL (0.0-0.1); BASOPHILS % (AUTO) 0.8 %; EOSINOPHILS % (AUTO) 0.3 %; HGB - HEMOGLOBIN 13.3 g/dL (12.0-16.0); LYMPHOCYTES # (AUTO) 1.4 10^3/uL (1.5-3.5); LYMPHOCYTES % (AUTO) 21.6 %; MEAN CORPUSCULAR HEMOGLOBIN 31.4 pg (27.0-31.0); MEAN CORPUSCULAR HGB CONC 33.8 g/dL (32.0-36.0); MEAN CORPUSCULAR VOLUME 92.7 fL (81.0-99.0); MEAN PLATELET VOLUME 10.3 fL (7.9-10.8); MONOCYTES # (AUTO) 0.6 10^3/uL (0.0-1.0); MONOCYTES % (AUTO) 9.9 %; NEUTROPHILS # (AUTO) 4.2 10^3/uL (1.5-6.6); NEUTROPHILS % (AUTO) 67.2 %; PLT - PLATELET COUNT 192 10^3/uL (130-450); RED BLOOD COUNT 4.24 10^6/uL (4.20-5.40); RED CELL DISTRIBUTION WIDTH 12.8 % (12.0-15.0); WHITE BLOOD COUNT 6.3 x10^3/uL (4.8-10.8)
[2019-07-30 13:00] LABS: ALBUMIN/GLOBULIN RATIO 1.5 (1.0-2.2); BILIRUBIN,TOTAL 0.8 mg/dL (0.2-1.0); CALCIUM 8.6 mg/dL (8.5-10.3); CREATININE 0.6 mg/dL (0.4-1.0); MAGNESIUM 2.2 mg/dL (1.7-2.8); TOTAL PROTEIN 6.7 g/dL (6.7-8.2)
[2019-07-30 14:04] VITALS: BP 114/111
== END 2019-07-30 14:11 | disposition home or self-care (01) ==
LOC: ED 12:14
DX: R42 Dizziness and giddiness (principal); I10 Essential (primary) hypertension
CPT/HCPCS: 36415; 80053; 83690; 83735; 84443; 84484; 85025; 85379; 93005; 99284

== ENCOUNTER 2019-08-14 08:41 | Outpatient (CLI) | payer MEDICARE, OTHER ==
--- NOTE | 2019-08-15 10:34 | Ultrasound Report ---
Reason: CEREBROVASCULAR DISEASE Procedure Date: 08/14/2019 Accession Number: [id number] / [id number] Procedure: US - Carotid Doppler Complete CPT Code: Final Report FULL RESULT: EXAM: BILATERAL CAROTID AND VERTEBRAL ARTERY DUPLEX DOPPLER ULTRASOUND: EXAM DATE: 08/14/2019 09:30 AM CLINICAL HISTORY: Cerebrovascular disease. Essential hypertension. COMPARISON: None. TECHNIQUE: Grayscale imaging, color Doppler, and duplex spectral Doppler were used to evaluate the carotid and vertebral arteries bilaterally. Static images were obtained. FINDINGS: Mild bilateral common carotid and internal carotid artery calcified plaque. Normal antegrade flow is present in bilateral vertebral arteries. VELOCITIES (cm/s): Right CCA Mid: PSV 101.5 cm/sec CCA Dist: PSV 82.0 cm/sec ICA Prox: PSV 74.9 cm/sec, EDV 14.3 cm/sec ICA Mid: PSV 79.4 cm/sec, EDV 15.8 cm/sec ICA Dist: PSV 88.6 cm/sec, EDV 14.0 cm/sec ECA: PSV 69.9 cm/sec Vert: PSV 59.2 cm/sec ICA/CCA: 0.9 Left CCA Mid: PSV 97.6 cm/sec CCA Dist: PSV 74.6 cm/sec ICA Prox: PSV 62.4 cm/sec, EDV 26.4 cm/sec ICA Mid: PSV 76.9 cm/sec, EDV 32.9 cm/sec ICA Dist: PSV 69.3 cm/sec, EDV 25.6 cm/sec ECA: PSV 80.3 cm/sec Vert: PSV 56.8 cm/sec ICA/CCA: 1.0 ICA diameter stenosis: Right: <50% by velocity and <70% by NASCET criteria. Left: <50% by velocity and <70% by NASCET criteria. IMPRESSION: 1. Mild bilateral carotid artery plaquing. 2. In the right carotid artery there are no elevated carotid artery velocities to suggest hemodynamically significant stenosis. 3. In the left carotid artery there are no elevated carotid artery velocities to suggest hemodynamically significant stenosis. 4. Normal antegrade flow is present in bilateral vertebral arteries. General Recommendations: Stenosis =50% ICA - Follow-up ultrasound 6-12 months Stenosis <50% ICA - High Risk Patient with plaque - Follow-up ultrasound 1-2 years Normal Study but High Risk Patient - Follow-up ultrasound 3-5 years Management recommendations and diagnostic criteria are based on current IAC endorsed standards in Carotid Artery Stenosis: Grayscale and Doppler Ultrasound Diagnosis. Validated velocity measurements with angiographic measurements and velocity criteria are extrapolated from diameter data as defined by the Society of Radiologists in Ultrasound Consensus Conference Radiology 2003; 229;340-346. RADIA
== END 2019-08-14 08:42 | disposition home or self-care (01) ==
LOC: DI 08:41
PROVIDERS: ATTEND Psychiatry & Neurology Neurology
DX: I65.23 Occlusion and stenosis of bilateral carotid arteries (principal)
CPT/HCPCS: 93880

== ENCOUNTER 2019-11-16 23:19 | Outpatient (CLI) | payer MEDICARE, OTHER | END 2019-11-16 23:20 | disposition critical access hospital (66) | LOC: EMS 23:19 | PROVIDERS: ATTEND Surgery | DX: R00.0 Tachycardia, unspecified (principal); R42 Dizziness and giddiness; R23.2 Flushing; R11.0 Nausea | CPT/HCPCS: A0425; A0427 ==

== ENCOUNTER 2020-02-26 16:39 | Outpatient (CLI) | payer MEDICARE, OTHER | END 2020-02-26 16:40 | disposition home or self-care (01) | LOC: COV 16:39 | PROVIDERS: ATTEND Ophthalmology | DX: Z01.812 Encounter for preprocedural laboratory examination (principal); H25.811 Combined forms of age-related cataract, right eye; Z20.828 Contact with and (suspected) exposure to other viral communicable diseases ==

== ENCOUNTER 2020-03-03 06:58 | Day surgery (SDC) | payer MEDICARE, OTHER ==
[~2020-03-03 06:58] MED LIST: KETOROLAC 0.45% OPHTH DROPS ONE; PHENYLEPHRINE 2.5% OPHTH 2 ML DROPS ONE; PROPARACAINE 0.5% OPHTH DROPS 15 ML ONE
[2020-03-03] MEDS ORDERED: LACTATED RINGERS 500 ML IV ONE ×2 (07:20→08:13)
[2020-03-03] MEDS ORDERED: BSS/LIDOCAINE/EPINEPHRINE 1 ML SYRINGE ONE (07:22)
[2020-03-03] MEDS ORDERED: BRIMONIDINE 0.2% OPHTH DROPS 5 ML ONE (07:22)
[2020-03-03] MEDS ORDERED: EPINEPHrine 1 MG/ML AMP ONE (07:23)
[2020-03-03] MEDS ORDERED: TRIAMCIN/MOXIFLOX OPHTHALMIC 0.6 ML VIAL IO ONE ×2 (07:23→08:03)
[2020-03-03] MEDS ORDERED: VANCOMYCIN OPHTHALMI 8MG/0.8ML 8 MG/0.8 ML SYRINGE IO ONE ×2 (07:24→08:03)
[2020-03-03] MEDS ORDERED: TIMOLOL 0.5% OPHTH DROPS ONE (07:24)
--- NOTE | 2020-03-03 07:53 | ANESTHESIA ---
Pre-Anesthesia VS, & Labs - Diagnosis Right Cataract - Procedure Right PHACO IOL implant Vital Signs: Temp Pulse Resp BP Pulse Ox 36.5 C 62 18 132/74 H 97 03/03/20 07:03 03/03/20 07:03 03/03/20 07:03 03/03/20 07:03 03/03/20 07:03 Height: 5 ft 3 in Weight (kg): 76.8 kg Body Mass Index: 29.9 BMI Classification: Overweight - NPO >8 hours - Is Patient ?: No Home Medications and Allergies Home Medications: Ambulatory Orders Aspirin [Aspirin EC] 81 mg PO DAILY 03/02/20 Cholecalciferol (Vitamin D3) [Vitamin D3] 5,000 unit PO DAILY 03/02/20 Glucosamine HCl/Chondroitin [place] [Glucosamine-Chondroitin Cap] 2 each PO DAILY 03/02/20 Multivitamin/Iron/Folic Acid [Centrum Women Tablet] 1 each PO DAILY 03/02/20 [place]-3/Dha/Epa/Fish Oil [Fish Oil 1,200 mg Softgel] 1,200 mg PO DAILY 03/02/20 Omeprazole Magnesium 20 mg PO DAILY 03/02/20 Psyllium Husk [Fiber] 0.52 gm PO DAILY 03/02/20 Ibuprofen [Motrin] 600 mg PO Q6H PRN 07/22/19 SUMAtriptan succinate [Sumatriptan Succinate] 50 mg PO PRN PRN 07/22/19 Amlodipine Besylate [Norvasc] 2.5 mg PO BID 11/17/19 Venlafaxine ER [Effexor ER] 75 mg PO DAILY 11/17/19 lisinopriL [Lisinopril] 40 mg PO DAILY 11/17/19 Aspirin [Aspirin EC] 81 mg PO DAILY 03/02/20 Cholecalciferol (Vitamin D3) [Vitamin D3] 5,000 unit PO DAILY 03/02/20 Glucosamine HCl/Chondroitin [place] [Glucosamine-Chondroitin Cap] 2 each PO DAILY 03/02/20 Multivitamin/Iron/Folic Acid [Centrum Women Tablet] 1 each PO DAILY 03/02/20 [place]-3/Dha/Epa/Fish Oil [Fish Oil 1,200 mg Softgel] 1,200 mg PO DAILY 03/02/20 Omeprazole Magnesium 20 mg PO DAILY 03/02/20 Psyllium Husk [Fiber] 0.52 gm PO DAILY 03/02/20 Allergies/Adverse Reactions: Allergies Allergy/AdvReac Type Severity Reaction Status Date / Time ciprofloxacin [From Cipro] AdvReac Anaphylaxis Verified 07/30/19 12:27 ciprofloxacin HCl * AdvReac Anaphylaxis Verified 07/30/19 12:27 [From Cipro] codeine AdvReac Nausea Verified 07/30/19 12:27 metronidazole [From Flagyl] AdvReac Anaphylaxis Verified 07/30/19 12:27 Anes History & Medical History - Medical History Cardiovascular: reports: Hypertension, Arrhythmia Pulmonary: reports: None Gastrointestinal: reports: None Urinary: reports: None Neuro: reports: CVA, Migraines Musculoskeletal: reports: None Endocrine/Autoimmune: reports: None Skin: reports: None Smoking Status: Former smoker - Surgical History General: Bowel surgery Gynecologic: section Orthopedic: Other Dermatologic: Skin cancer surgery Plan Anesthesia Type: General Consent for Procedure(s) Verified and Reviewed: Yes Code Status: Attempt Resuscitation ASA classification: 2-Mild systemic disease Is this case an emergency?: No (This was an extra pre op)
--- NOTE | 2020-03-03 07:53 | ANESTHESIA ---
Pre-Anesthesia VS, & Labs - Diagnosis right eye senile combined cataract - Procedure right eye cataract extraction with IOL implant Vital Signs: Temp Pulse Resp BP Pulse Ox 36.5 C 62 18 132/74 H 97 03/03/20 07:03 03/03/20 07:03 03/03/20 07:03 03/03/20 07:03 03/03/20 07:03 Height: 5 ft 3 in Weight (kg): 76.8 kg Body Mass Index: 29.9 BMI Classification: Overweight - NPO >8 hours - Is Patient ?: No Home Medications and Allergies Home Medications: Ambulatory Orders Aspirin [Aspirin EC] 81 mg PO DAILY 03/02/20 Cholecalciferol (Vitamin D3) [Vitamin D3] 5,000 unit PO DAILY 03/02/20 Glucosamine HCl/Chondroitin [place] [Glucosamine-Chondroitin Cap] 2 each PO DAILY 03/02/20 Multivitamin/Iron/Folic Acid [Centrum Women Tablet] 1 each PO DAILY 03/02/20 [place]-3/Dha/Epa/Fish Oil [Fish Oil 1,200 mg Softgel] 1,200 mg PO DAILY 03/02/20 Omeprazole Magnesium 20 mg PO DAILY 03/02/20 Psyllium Husk [Fiber] 0.52 gm PO DAILY 03/02/20 Ibuprofen [Motrin] 600 mg PO Q6H PRN 07/22/19 SUMAtriptan succinate [Sumatriptan Succinate] 50 mg PO PRN PRN 07/22/19 Amlodipine Besylate [Norvasc] 2.5 mg PO BID 11/17/19 Venlafaxine ER [Effexor ER] 75 mg PO DAILY 11/17/19 lisinopriL [Lisinopril] 40 mg PO DAILY 11/17/19 Aspirin [Aspirin EC] 81 mg PO DAILY 03/02/20 Cholecalciferol (Vitamin D3) [Vitamin D3] 5,000 unit PO DAILY 03/02/20 Glucosamine HCl/Chondroitin [place] [Glucosamine-Chondroitin Cap] 2 each PO DAILY 03/02/20 Multivitamin/Iron/Folic Acid [Centrum Women Tablet] 1 each PO DAILY 03/02/20 [place]-3/Dha/Epa/Fish Oil [Fish Oil 1,200 mg Softgel] 1,200 mg PO DAILY 03/02/20 Omeprazole Magnesium 20 mg PO DAILY 03/02/20 Psyllium Husk [Fiber] 0.52 gm PO DAILY 03/02/20 Allergies/Adverse Reactions: Allergies Allergy/AdvReac Type Severity Reaction Status Date / Time ciprofloxacin [From Cipro] AdvReac Anaphylaxis Verified 07/30/19 12:27 ciprofloxacin HCl * AdvReac Anaphylaxis Verified 07/30/19 12:27 [From Cipro] codeine AdvReac Nausea Verified 07/30/19 12:27 metronidazole [From Flagyl] AdvReac Anaphylaxis Verified 07/30/19 12:27 Anes History & Medical History - Anesthetic History Anesthesia Complications: reports: No previous complications - Medical History Cardiovascular: reports: Hypertension, Arrhythmia Pulmonary: reports: None Gastrointestinal: reports: None Urinary: reports: None Neuro: reports: CVA, Migraines Musculoskeletal: reports: None Endocrine/Autoimmune: reports: None Blood Disorders: reports: None Skin: reports: None Smoking Status: Former smoker Psychosocial: reports: No issues indicated History of Cancer?: No - Surgical History General: Bowel surgery Gynecologic: section Orthopedic: Other Dermatologic: Skin cancer surgery Exam General: Alert, Oriented x3, Cooperative, No acute distress Dental: WNL Mouth Openin Fingerbreadth Neck Mobility: Normal Mallampati classification: III Mental/Cognitive Status: Alert/Oriented X3, Normal for patient Plan Anesthesia Type: MAC Consent for Procedure(s) Verified and Reviewed: Yes Code Status: Attempt Resuscitation ASA classification: 2-Mild systemic disease Is this case an emergency?: No
[2020-03-03] MEDS ORDERED: MIDAZOLAM 2 MG/2 ML VIAL IVP ONE (07:58)
[2020-03-03] MEDS ORDERED: fentaNYL 100 MCG/2 ML VIAL IVP ONE (07:58)
[2020-03-03] MEDS ORDERED: PROPARACAINE 0.5% OPHTH DROPS 15 ML EACHEYE ONE (08:03)
[2020-03-03] MEDS ORDERED: BSS/LIDOCAINE/EPINEPHRINE 1 ML SYRINGE IO ONE (08:03)
[2020-03-03] MEDS ORDERED: BRIMONIDINE 0.2% OPHTH DROPS 5 ML OPTH ONE (08:03)
[2020-03-03] MEDS ORDERED: TIMOLOL 0.5% OPHTH DROPS OPTH ONE (08:03)
[2020-03-03] MEDS ORDERED: CHONDR SULF/HYALURONATE SYRINGE IO ONE (08:03)
[2020-03-03] MEDS ORDERED: EPINEPHrine 1 MG/ML AMP IR ONE (08:03)
[2020-03-03 08:35] VITALS: BP 138/66
--- NOTE | 2020-03-03 08:39 | ANESTHESIA POST OP EVALUATION ---
Anesthesia Post Eval - Post Anesthesia Eval Vitals: Last Vital Signs Temp 36.9 C 03/03/20 08:13 Pulse 65 03/03/20 08:35 Resp 11 L 03/03/20 08:35 BP 138/66 H 03/03/20 08:35 Pulse Ox 95 03/03/20 08:35 CV Function Including HR & BP: positive: Stable Pain Control: positive: Satisfactory Nausea & Vomiting: positive: Negative Mental Status: positive: Baseline Respiratory Status: Airway Patent Hydration Status: Satisfactory Anesthesia Complications: positive: None (Awake, alert, taking PO. No complaints.)
--- NOTE | 2020-03-03 12:28 | OPERATIVE REPORT ---
DATE OF SERVICE: 03/03/2020 Physician: Hernán Villela MD PREOPERATIVE DIAGNOSIS: Visually significant cataract, right eye. This was her first cataract surge ry. POSTOPERATIVE DIAGNOSIS: Visually significant cataract, right eye. This was her first cataract surg bharati. PROCEDURE: Phacoemulsification with posterior chamber intraocular lens implant, right eye. SURGEON: Hernán Villela MD. ANESTHESIA: Monitored anesthesia care. COMPLICATIONS: None. OPERATIVE INDICATIONS: This is a 69-year-old woman with progressive vision loss in the right eye due to 2+ nuclear sclerotic and 3+ cortical cataract. Best corrected visual acuity was 20/25, with glar e to 20/100 in the right eye. Indications for surgery are overall decrease in vision, difficulty see ing words on a computer screen, difficulty reading, difficulty seeing words closed caption or game sc ores on TV, difficulty driving in low light or at night, difficulty driving at night because headligh ts from other vehicles, and difficulty with glare or bright lights in any situation. She was consent ed at length concerning risks and benefits of cataract surgery, after which she expressed a desire to proceed with surgery. OPERATIVE PROCEDURE: The patient was taken into OR #3 and placed under monitored anesthesia care. A surgical timeout was conducted confirming correct patient, correct procedure, and correct surgical si te. She was given topical anesthesia, and prepped and draped in the usual sterile fashion. The eye was entered at the 12, and 9 o'clock positions. Intracameral Shugarcaine was injected into the anter ior chamber, followed by Viscoat. A continuous-tear curvilinear capsulorrhexis was performed. The n ucleus was hydrodissected and phacoemulsified. The cortex was evacuated using automated infusion and aspiration. Provisc was injected in the capsular bag, and a 22.5 diopter intraocular lens was inser brittney into the bag. Infusion and aspiration was used to evacuate the viscoelastic materials. The eye was inflated to physiologic pressure using balanced salt solution and found to be watertight. Approx imately 0.25 mL of a mixture of triamcinolone and moxifloxacin was injected transsclerally into the v itreous in the inferotemporal quadrant. An additional 0.55 mL of a mixture of triamcinolone, moxiflo xacin, and vancomycin was injected subconjunctivally in the superior quadrant for infection and infla mmation prophylaxis. Wound integrity was checked with Weck-Kimi sponges. The patient was taken from the operating room in good condition and given postoperative instructions. TD: 03/03/2020 08:56
== END 2020-03-03 06:59 | disposition home or self-care (01) ==
LOC: SDS 06:58
PROVIDERS: ATTEND Ophthalmology
DX: H25.811 Combined forms of age-related cataract, right eye (principal); I10 Essential (primary) hypertension; Z87.891 Personal history of nicotine dependence; E66.3 Overweight; Z68.29 Body mass index [BMI] 29.0-29.9, adult
CPT/HCPCS: 66984; A9270; J3490; J7120; V2632

== ENCOUNTER 2020-10-18 12:01 | Outpatient (CLI) | payer MEDICARE, OTHER ==
[2020-10-18 16:12] LABS: ALBUMIN 3.7 g/dL (3.2-5.5); ALBUMIN/GLOBULIN RATIO 1.5 (1.0-2.2); ALKALINE PHOSPHATASE 57 IU/L (42-121); ALT ALANINE AMINOTRANSFERASE 22 IU/L (10-60); AST ASPARTATE AMINOTRANSFERASE 27 IU/L (10-42); BILIRUBIN,TOTAL 0.5 mg/dL (0.2-1.0); BUN - BLOOD UREA NITROGEN 19 mg/dL (6-20); CALCIUM 9.4 mg/dL (8.5-10.3); CARBON DIOXIDE - CO2 25 mmol/L (21-32); CHLORIDE 106 mmol/L (101-111); CREATININE 0.7 mg/dL (0.4-1.0); GFR - MDRD 83 (>89); GLUCOSE 137 mg/dL (70-100); POTASSIUM 3.8 mmol/L (3.5-5.0); SODIUM 139 mmol/L (135-145); TOTAL PROTEIN 6.2 g/dL (6.7-8.2); URIC ACID 5.1 mg/dL (2.6-7.2)
[2020-10-18 16:24] LABS: CRP - C-REACTIVE PROTEIN < 1.0 mg/dL (0-1.0)
--- NOTE | 2020-10-18 16:36 | XRAY Report ---
PROCEDURE: Hand 2 View LT INDICATIONS: SWELLING OF FINGER JOINT TECHNIQUE: 3 views of the hand(s) acquired. COMPARISON: None FINDINGS: Bones: No fractures or dislocations. No suspicious bony lesions. Scattered IP degenerative narrowi ng overall mild to moderate at the PIP and DIP joints. No gross erosions. Soft tissues: No suspicious soft tissue calcifications. IMPRESSION: Scattered IP degenerative narrowing as above most consistent with arthritis. Reviewed by: Lucila Carney MD on 10/18/2020 4:34 PM PDT Approved by: Lucila Carney MD on 10/18/2020 4:34 PM PDT Station ID: [id number]
== END 2020-10-18 12:02 | disposition home or self-care (01) ==
LOC: DI.S 12:01
PROVIDERS: ATTEND Nurse Practitioner Family
DX: M19.042 Primary osteoarthritis, left hand (principal)
CPT/HCPCS: 36415; 80053; 84550; 85651; 86140

== ENCOUNTER 2020-11-09 16:58 | Outpatient (CLI) | payer MEDICARE, OTHER ==
--- NOTE | 2020-11-10 11:51 | Ultrasound Report ---
PROCEDURE: Pelvic Limited or F/U INDICATIONS: LEFT INGUINAL PAIN TECHNIQUE: Real-time transabdominal scanning was performed of the left inguinal region, with image documentation . COMPARISON: CT abdomen pelvis 05/11/2019. FINDINGS: Evaluation limited due to body habitus. There is suggestion of a small fat-containing reducible left inguinal hernia. IMPRESSION: 1. Limited study due to body habitus demonstrates a suspected small fat-containing reducible inguinal hernia. If clinical concern persists, a pelvic CT with Valsalva may be performed for further evaluat ion. Reviewed by: Pete Wood MD on 11/10/2020 11:50 AM PDT Approved by: Pete Wood MD on 11/10/2020 11:50 AM PDT Station ID: [id number]
== END 2020-11-09 16:59 | disposition home or self-care (01) ==
LOC: DI 16:58
PROVIDERS: ATTEND Family Medicine
DX: R10.32 Left lower quadrant pain (principal)

== ENCOUNTER 2020-11-12 08:28 | Emergency (ER) | payer MEDICARE, OTHER ==
--- NOTE | 2020-11-12 09:27 | ED Physician Documentation ---
History of Present Illness - Stated complaint Stated Complaint: LT LEG PX - Chief complaint Chief Complaint: Abd Pain - History obtained from History obtained from: Patient - History of Present Illness Timing: How many weeks ago (1) - Additonal information Additional information: 72-year-old female who has had multiple abdominal surgeries has developed some pain in the left inguinal area when she is bearing weight and walking. She states that she is able to stand without this pain but if she attempts to move using her left leg she will have pain right in the inguinal area. She states this happened happened after she moved a chair across the room. She has been into see her primary care doctor yesterday and they did an ultrasound of her inguinal area finding what appeared to be a fat-containing inguinal hernia. They have asked for further studies to be done and have requested a pelvis CT with Valsalva. The patient is able to get around in her home with a knee scooter putting her good knee on the scooter and using her toes for pushoff. Review of Systems Constitutional: denies: Fever Eyes: denies: Decreased vision Ears: denies: Ear pain Nose: denies: Congestion Throat: denies: Sore throat Cardiac: denies: Chest pain / pressure, Palpitations Respiratory: denies: Dyspnea, Cough GI: denies: Abdominal Pain, Nausea, Vomiting, Constipation, Diarrhea : denies: Dysuria, Frequency PD PAST MEDICAL HISTORY - Past Medical History Cardiovascular: Hypertension, Arrhythmia Respiratory: None Neuro: CVA, Migraines Endocrine/Autoimmune: None GI: Chronic diarrhea, Diverticulitis : None HEENT: None Psych: None Musculoskeletal: None Derm: Eczema - Past Surgical History Past Surgical History: Yes General: Bowel surgery 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 Derm: Skin cancer surgery - Present Medications Home Medications: Ambulatory Orders Medication Instructions Recorded Confirmed Ibuprofen [Motrin] 600 mg PO Q6H PRN 07/22/19 03/02/20 SUMAtriptan succinate [Sumatriptan 50 mg PO PRN PRN 07/22/19 03/02/20 Succinate] Amlodipine Besylate [Norvasc] 2.5 mg PO BID 11/17/19 03/03/20 Metoprolol Succinate [Toprol Xl] 12.5 mg PO DAILY #15 tablet 11/17/19 03/03/20 Venlafaxine ER [Effexor ER] 75 mg PO DAILY 11/17/19 03/02/20 lisinopriL [Lisinopril] 40 mg PO DAILY 11/17/19 03/02/20 Aspirin [Aspirin EC] 81 mg PO DAILY 03/02/20 03/02/20 Cholecalciferol (Vitamin D3) 5,000 unit PO DAILY 03/02/20 03/02/20 [Vitamin D3] Glucosamine HCl/Chondroitin [place] 2 each PO DAILY 03/02/20 03/02/20 [Glucosamine-Chondroitin Cap] Multivitamin/Iron/Folic Acid 1 each PO DAILY 03/02/20 03/02/20 [Centrum Women Tablet] [place]-3/Dha/Epa/Fish Oil [Fish Oil 1,200 mg PO DAILY 03/02/20 03/02/20 1,200 mg Softgel] Omeprazole Magnesium 20 mg PO DAILY 03/02/20 03/03/20 Psyllium Husk [Fiber] 0.52 gm PO DAILY 03/02/20 03/02/20 - Allergies Allergies/Adverse Reactions: Allergies Allergy/AdvReac Type Severity Reaction Status Date / Time ciprofloxacin [From Cipro] AdvReac Anaphylaxis Verified 11/12/20 08:58 ciprofloxacin HCl * AdvReac Anaphylaxis Verified 11/12/20 08:58 [From Cipro] codeine AdvReac Nausea Verified 11/12/20 08:58 metronidazole [From Flagyl] AdvReac Anaphylaxis Verified 11/12/20 08:58 - Social History Does the pt smoke?: No Smoking Status: Former smoker Does the pt drink ETOH?: No Does the pt have substance abuse?: No - Immunizations Immunizations are current?: Yes - POLST Patient has POLST: No PD ED PE NORMAL - Vitals Vital signs reviewed: Yes (normal ) - General General: Alert and oriented X 3, No acute distress, Well developed/nourished - HEENT HEENT: Atraumatic, PERRL, EOMI - Respiratory Respiratory: No respiratory distress - Abdomen Abdomen: Normal bowel sounds, Soft, Non tender, Non distended, No organomegaly - Back Back: No CVA TTP, No spinal TTP - Derm Derm: Normal color, Warm and dry, No rash - Extremities Extremities: No deformity, No edema, Other (When the patient stands and attempts to walk she has pain along the inguinal crease there is no additional mass palpated.) - Neuro Neuro: Alert and oriented X 3, 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 No evidence of inguinal hernia. Ventral herniorrhaphy without recurrent or residual hernia. Partially imaged bilateral renal cyst are stable from prior. Sigmoid diverticulosis without evidence of diverticulitis.), EMP read indepedently, See rad report PD MEDICAL DECISION MAKING - ED course Complexity details: reviewed old records, reviewed results, re-evaluated patient, considered differential, d/w patient ED course: 70-year-old female with a complicated past medical history related to diverticulitis with rupture and colon resection multiple times with herniorrhaphy as well has strained her left groin and has pain when she attempts to walk and is otherwise comfortable. Today we obtained a CT of the pelvis to ascertain whether there was a problem with inguinal hernia on the left side. No hernia was seen. No hernia was palpated with the patient standing and walking. I suspect the patient has strained her hip flexor at the insertion. Departure - Departure Disposition: 01 Home, Self Care Clinical Impression: Strain of left groin Condition: Stable Instructions: ED Strain Groin Follow-Up: Bishnu Don MD [Primary Care Provider] - Comments: Today it appears that the pain you are having in your groin is related to a strain of the attachments of the muscle. This should heal in 2 to 3 weeks and physical therapy may be indicated. Continue with the methods you are using to get around and expect improvement over the next week. Follow-up with your primary care doctor about physical therapy.
--- NOTE | 2020-11-12 10:08 | CT Report ---
PROCEDURE: PELVIS WO INDICATIONS: inguinal pain L TECHNIQUE: Noncontrast 3 mm axial sections acquired through the bony pelvis, with coronal and sagittal reformatt ing. For radiation dose reduction, the following was used: automated exposure control, adjustment of mA and/or kV according to patient size. COMPARISON: 05/11/2019 FINDINGS: There is a ventral herniorrhaphy noted intact. No evidence of recurrent or residual hernia. No eviden ce of inguinal hernia Otherwise, partially visualized cysts in the hepatorenal cysts are stable from the prior. Anastomotic bowel suture in the right flank is intact. No evidence of bowel obstruction. Multiple diverticula ar ise from the sigmoid colon without evidence of diverticulitis. Described vascular calcification noted involving the abdominal aorta present without aneurysm. Underlying osseous structures are appropriately mineralized without evidence of lytic or blastic lesi on. Mild degenerative changes in the lower lumbar spine IMPRESSION: 1. No evidence of inguinal hernia. 2. Ventral herniorrhaphy without recurrent or residual hernia. 3. Partially imaged bilateral renal cysts are stable from the prior. 4. Sigmoid diverticulosis without evidence of diverticulitis Reviewed by: Edwin Dixon MD on 11/12/2020 9:07 AM AIDEN Approved by: Edwin Dixon MD on 11/12/2020 9:07 AM AIDEN Station ID: [id number]
[2020-11-12 10:41] VITALS: BP 157/82
== END 2020-11-12 10:44 | disposition home or self-care (01) ==
LOC: ED 08:28
DX: S39.013A Strain of muscle, fascia and tendon of pelvis, initial encounter (principal); X58.XXXA Exposure to other specified factors, initial encounter; Z98.890 Other specified postprocedural states; I10 Essential (primary) hypertension; Z87.891 Personal history of nicotine dependence; Z79.82 Long term (current) use of aspirin
CPT/HCPCS: 99282; 99284

== ENCOUNTER 2020-12-07 16:49 | Emergency (ER) | payer MEDICARE, OTHER ==
[2020-12-07] MEDS ORDERED: HYDROmorphone 1 MG/ML CARPUJECT IVP STA (17:23)
[2020-12-07 17:31] LABS: BILIRUBIN,URINE NEGATIVE (NEGATIVE); GLUCOSE, URINE (UA) NEGATIVE (NEGATIVE); KETONES,URINE (UA) NEGATIVE (NEGATIVE); LEUKOCYTE ESTERASE, URINE NEGATIVE (NEGATIVE); NITRITE,URINE NEGATIVE (NEGATIVE); OCCULT BLOOD,URINE SMALL (NEGATIVE); PH,URINE 5.5 PH (5.0-7.5); PROTEIN,URINE NEGATIVE (NEGATIVE); UROBILINOGEN,URINE 0.2 (NORMAL) E.U./dL (NORMAL)
[2020-12-07] MEDS ORDERED: IOPAMIDOL-300 100 ML VIAL ONE (17:36)
--- NOTE | 2020-12-07 17:41 | ED Physician Documentation ---
History of Present Illness - Stated complaint Stated Complaint: LT FLANK PX - Chief complaint Chief Complaint: Abd Pain - Additonal information Additional information: 70-year-old female presents the emergency department for evaluation of 2 days acute left flank/CVA tenderness. She reports it is a constant ache limiting her movement. She does deny chest pain or shortness of air. She has a history of diverticulitis and has had her colon resected 4 times. 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 She also has a surgical history of multiple abdominal hernias status post mesh repair with failure. Patient denies fevers or dysuria. No hematuria. Denies any history of renal colic. No cough cold or congestion. She is fully vaccinated for COVID-19 but did unfortunately have Covid early in the pandemic. She reports herself as a long-haul letter and is being evaluated by neurology. Finding some symptom relief with venlafaxine as well as magnesium. Patient seen in this ER number weeks ago for lower groin pull/strain which she feels is markedly better. Review of Systems Constitutional: denies: Fever, Chills Throat: reports: Dental pain / toothache Cardiac: reports: Reviewed and negative Respiratory: reports: Reviewed and negative GI: reports: Abdominal Pain, Diarrhea (chronic). 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 Derm: Skin cancer surgery - Present Medications Home Medications: Ambulatory Orders Medication Instructions Recorded Confirmed Ibuprofen [Motrin] 600 mg PO Q6H PRN 07/22/19 03/02/20 SUMAtriptan succinate [Sumatriptan 50 mg PO PRN PRN 07/22/19 03/02/20 Succinate] Amlodipine Besylate [Norvasc] 2.5 mg PO BID 11/17/19 03/03/20 Metoprolol Succinate [Toprol Xl] 12.5 mg PO DAILY #15 tablet 11/17/19 03/03/20 Venlafaxine ER [Effexor ER] 75 mg PO DAILY 11/17/19 03/02/20 lisinopriL [Lisinopril] 40 mg PO DAILY 11/17/19 03/02/20 Aspirin [Aspirin EC] 81 mg PO DAILY 03/02/20 03/02/20 Cholecalciferol (Vitamin D3) 5,000 unit PO DAILY 03/02/20 03/02/20 [Vitamin D3] Glucosamine HCl/Chondroitin [place] 2 each PO DAILY 03/02/20 03/02/20 [Glucosamine-Chondroitin Cap] Multivitamin/Iron/Folic Acid 1 each PO DAILY 03/02/20 03/02/20 [Centrum Women Tablet] [place]-3/Dha/Epa/Fish Oil [Fish Oil 1,200 mg PO DAILY 03/02/20 03/02/20 1,200 mg Softgel] Omeprazole Magnesium 20 mg PO DAILY 03/02/20 03/03/20 Psyllium Husk [Fiber] 0.52 gm PO DAILY 03/02/20 03/02/20 - Allergies Allergies/Adverse Reactions: Allergies Allergy/AdvReac Type Severity Reaction Status Date / Time ciprofloxacin [From Cipro] AdvReac Anaphylaxis Verified 12/07/20 17:02 ciprofloxacin HCl * AdvReac Anaphylaxis Verified 12/07/20 17:02 [From Cipro] codeine AdvReac Nausea Verified 12/07/20 17:02 metronidazole [From Flagyl] AdvReac Anaphylaxis Verified 12/07/20 17:02 - Social History Does the pt smoke?: No Smoking Status: Former smoker Does the pt drink ETOH?: No Does the pt have substance abuse?: No - Immunizations Immunizations are current?: Yes - POLST Patient has POLST: No PD ED PE EXPANDED - General General: Alert, No acute distress - Cardiac Cardiac: Regular Rate, Radial strong equal, Pedal strong equal, Cap refill < 2 sec - Respiratory Respiratory: Clear to ausultation rita. No: Distress, Labored - Abdomen Abdomen: Normal Bowel sounds, Tender to palpation (Tender to palpate of the left flank. Mild CVA tenderness elicited. There is no guarding or rebound. Nonperitoneal exam.), Surgical scars (Multiple well-healed surgical incisions.) - Back Back: Normal exam, CVA TTP left. No: CVA TTP right - Derm Derm: Normal color, Warm and dry. No: Rash - Extremities Extremities: Normal, Deformity - Neuro Neuro: Alert and Oriented X 3, CNII-XII intact - GCS Eye Opening: Spontaneous Motor: Obeys Commands Verbal: Oriented Total: 15 Results - Vitals Vitals: Vital Signs - 24 hr 12/07/20 12/07/20 16:56 19:02 Temperature 36.5 C Heart Rate 70 77 Respiratory 16 16 Rate Blood Pressure 139/69 H 144/82 H O2 Saturation 96 100 Oxygen O2 Source Room air - Labs Labs: Laboratory Tests 12/07/20 12/07/20 12/07/20 17:28 17:38 17:38 WBC 5.5 RBC 4.35 Hgb 13.4 Hct 40.5 MCV 93.1 MCH 30.8 MCHC 33.1 RDW 12.5 Plt Count 189 MPV 10.0 Neut # (Auto) 3.5 Lymph # (Auto) 1.3 L Saunders # (Auto) 0.6 Eos # (Auto) 0.1 Baso # (Auto) 0.1 Absolute Nucleated RBC 0.00 Nucleated RBC % 0.0 Sodium 137 Potassium 3.7 Chloride 104 Carbon Dioxide 23 Anion Gap 10.0 BUN 17 Creatinine 0.7 Estimated GFR (MDRD) 83 L Glucose 142 H Calcium 9.0 Total Bilirubin 0.5 AST 21 ALT 21 Alkaline Phosphatase 65 Total Protein 6.4 L Albumin 3.8 Globulin 2.6 Albumin/Globulin Ratio 1.5 Lipase 40 Urine Color YELLOW Urine Clarity CLEAR Urine pH 5.5 Ur Specific Thornton 1.010 Urine Protein NEGATIVE Urine Glucose (UA) NEGATIVE Urine Ketones NEGATIVE Urine Occult Blood SMALL H Urine Nitrite NEGATIVE Urine Bilirubin NEGATIVE Urine Urobilinogen 0.2 (NORMAL) Ur Leukocyte Esterase NEGATIVE Urine RBC 0-5 Urine WBC 0-3 Ur Squamous Epith Cells RARE Squamous Urine Bacteria None Seen Ur Microscopic Review INDICATED Urine Culture Comments NOT INDICATED - Rads (name of study) CXR Radiology: Final report received (No acute cardiopulmonary process) CT abd Radiology: Final report received (Colonic diverticula. Despite incomplete distention of the distal descending and sigmoid colon no inflammatory changes identified to suggest colitis. No nephro or urothelial lithiasis. Multiple hepatic and renal cysts. Low-attenuation foci within the spleen unchanged.) PD MEDICAL DECISION MAKING - ED course Complexity details: reviewed results, considered differential, d/w patient ED course: 70-year-old female presents emergency department for evaluation of acute left upper abdominal flank and rib pain that began a number of days ago. She has had no fevers or vomiting. No bloody stools or diarrhea. She is concerned because she has a history of multiple colon surgeries as well as bowel resection. On exam the pain is reproducible just under the left costophrenic angle of the rib cage but no swelling or erythema was noted. Today screening labs are essentially unremarkable. Chest x-ray without focal findings no rib fractures or pneumonia. CT of the abdomen does not show any acute abdomen. No findings of diverticulitis. We do make incidental note of multiple previously evaluated renal and hepatic cyst. Patient declined any analgesia in the emergency department has been taken Tylenol and ibuprofen at home with mild to moderate relief of the pain. I did offer a stronger opiate agent but she declined that today. She is relieved to know that this is not a problem with her remaining intestine. Patient is advised close follow-up with her primary care provider. Emergent return precautions discussed. Departure - Departure Disposition: Home, Self Care Clinical Impression: Acute left flank pain Condition: Stable Record reviewed to determine appropriate education?: Yes Comments: Deepa lee were seen in the emergency department today for acute pain in your left flank/upper abdomen. The chest x-ray was normal. Your screening labs are also normal. You do not have findings of pneumonia or obvious broken bones. A CAT scan of your abdomen did not show any findings of diverticulitis. It did make note of previously seen renal and hepatic cyst that are not changed today. The cause of this pain is not clear though it does sound a lot like a muscle strain brain or pool. Please continue alternating ibuprofen and Tylenol. I recommend warm compress. Gentle stretching if you are able to tolerate that. Please discuss this ED visit with your primary care provider. Return immediately to the ER if your symptoms worsen, you develop fevers, have black or bloody stools
[2020-12-07 17:42] LABS: BACTERIA,URINE None Seen /HPF (None Seen); CLARITY,URINE CLEAR (CLEAR); RBC,URINE 0-5 /HPF (0-5); SQUAMOUS EPITHELIAL CELL,UR RARE Squamous (<= Few); WBC,URINE 0-3 /HPF (0-5)
[2020-12-07 17:45] LABS: BASOPHILS # (AUTO) 0.1 10^3/uL (0.0-0.1); BASOPHILS % (AUTO) 0.9 %; EOSINOPHILS # (AUTO) 0.1 10^3/uL (0.0-0.7); HCT - HEMATOCRIT 40.5 % (37.0-47.0); HGB - HEMOGLOBIN 13.4 g/dL (12.0-16.0); LYMPHOCYTES # (AUTO) 1.3 10^3/uL (1.5-3.5); LYMPHOCYTES % (AUTO) 23.1 %; MEAN CORPUSCULAR HEMOGLOBIN 30.8 pg (27.0-31.0); MEAN CORPUSCULAR HGB CONC 33.1 g/dL (32.0-36.0); MEAN CORPUSCULAR VOLUME 93.1 fL (81.0-99.0); MONOCYTES # (AUTO) 0.6 10^3/uL (0.0-1.0); MONOCYTES % (AUTO) 10.2 %; NEUTROPHILS # (AUTO) 3.5 10^3/uL (1.5-6.6); NEUTROPHILS % (AUTO) 63.6 %; PLT - PLATELET COUNT 189 10^3/uL (130-450); RED BLOOD COUNT 4.35 10^6/uL (4.20-5.40); RED CELL DISTRIBUTION WIDTH 12.5 % (12.0-15.0); WHITE BLOOD COUNT 5.5 x10^3/uL (4.8-10.8)
--- NOTE | 2020-12-07 17:47 | XRAY Report ---
PROCEDURE: Chest 1 View X-Ray INDICATIONS: chest pain TECHNIQUE: One view of the chest was acquired. COMPARISON: Chest x-ray 11/17/2019 FINDINGS: Surgical changes and devices: None. Lungs and pleura: No pleural effusions or pneumothorax. Lungs are clear. Mediastinum: Mediastinal contours appear normal. Heart size is normal. Bones and chest wall: No suspicious bony lesions. Overlying soft tissues appear unremarkable. IMPRESSION: No acute pulmonary process. Reviewed by: Lucila Carney MD on 12/07/2020 5:46 PM PDT Approved by: Lucila Carney MD on 12/07/2020 5:46 PM PDT Station ID: [id number]
[2020-12-07 17:55] LABS: ALBUMIN 3.8 g/dL (3.2-5.5); ALBUMIN/GLOBULIN RATIO 1.5 (1.0-2.2); BILIRUBIN,TOTAL 0.5 mg/dL (0.2-1.0); CREATININE 0.7 mg/dL (0.4-1.0); POTASSIUM 3.7 mmol/L (3.5-5.0); TOTAL PROTEIN 6.4 g/dL (6.7-8.2)
[2020-12-07] MEDS ORDERED: IOPAMIDOL-300 100 ML VIAL IVP ONE (18:30)
--- NOTE | 2020-12-07 19:39 | CT Report ---
PROCEDURE: Abdomen/Pelvis W INDICATIONS: left flank/cva tenderness CONTRAST: IV CONTRAST: Isovue 300 ml: 100 PO CONTRAST: *NO PO CONTRAST TECHNIQUE: After the administration of IV contrast, 5 mm thick sections acquired from the diaphragms to the symp hysis. 5 mm thick coronal and sagittal reformats were acquired. For radiation dose reduction, the f ollowing was used: automated exposure control, adjustment of mA and/or kV according to patient size. COMPARISON: CT abdomen pelvis 05/11/2019, CT pelvis 11/12/2020 FINDINGS: Image quality: Excellent. ABDOMEN: Lung bases: Lung bases are clear. Heart size is normal. Solid organs: Liver demonstrates multifocal areas of low attenuation with Hounsfield units less than 20. Liver is enlarged with steatosis. The spleen demonstrates multiple low-attenuation foci too smal l to definitively characterize. Gallbladder is unremarkable Biliary system is non dilated. Pancreas enhances normally. No adrenal nodules. Kidneys demonstrate normal size and enhancement, without hy dronephrosis. Bilateral renal cysts are present. Peritoneum and bowel: Bowel loops demonstrate normal wall thickness and caliber. No free fluid or a ir. Colonic diverticula are present. There is incomplete distention of the distal descending as well as proximal sigmoid colon. No definitive areas of inflammatory change. Nodes and vessels: No retroperitoneal or mesenteric adenopathy by size criteria. Aorta and inferior vena cava are normal in size. Miscellaneous: Ventral hernia repair mesh is noted. PELVIS: Genitourinary: Bladder wall thickness is normal. Miscellaneous: No inguinal hernias or adenopathy. Bones: No suspicious bony lesions. No vertebral body compression fractures. IMPRESSION: 1. Colonic diverticula. Despite incomplete distention of the distal descending and sigmoid colon, no inflammatory change is identified to suggest colitis. 2. No nephro or ureterolithiasis. 3. Multiple hepatic and renal cysts. 4. Low-attenuation foci within the spleen, unchanged. These may represent areas of cysts or potential ly hemangiomas. Reviewed by: Lucila Carney MD on 12/07/2020 7:38 PM PDT Approved by: Lucila Carney MD on 12/07/2020 7:38 PM PDT Station ID: [id number]
[2020-12-07 20:24] VITALS: BP 128/100
== END 2020-12-07 20:23 | disposition home or self-care (01) ==
LOC: ED 16:49
DX: R10.12 Left upper quadrant pain (principal); I10 Essential (primary) hypertension; K52.9 Noninfective gastroenteritis and colitis, unspecified; Z87.891 Personal history of nicotine dependence
CPT/HCPCS: 36415; 71045; 74177; 80053; 81001; 83690; 85025; 99283; 99284; Q9967; 81003; 87086

== ENCOUNTER 2021-01-25 10:18 | Outpatient (CLI) | payer MEDICARE, OTHER ==
--- NOTE | 2021-01-25 12:17 | XRAY Report ---
PROCEDURE: Lumbar Spine 2 View INDICATIONS: PAIN IN RIGHT HIP JOINT TECHNIQUE: 5 views of the lumbar spine were acquired. COMPARISON: None. FINDINGS: L-SPINE: 5 nonrib-bearing vertebrae. No acute displaced fracture. Grade 1 anterolisthesis at L4-5 and L5-S1. The vertebral body heights are maintained. Mild to moderate disc height loss with vacuum phe nomena, most prominent at L5-S1. Facet arthrosis, which appears to cause moderate neuroforaminal narrowing. The sacroiliac joints appear patent. SOFT TISSUES: No focal abnormality. Calcified edematous change of the aorta. IMPRESSION: 1.No acute osseous abnormality of the lumbar spine. Reviewed by: Hiren Doss MD on 01/25/2021 12:15 PM PDT Approved by: Hiren Doss MD on 01/25/2021 12:15 PM PDT Station ID: [id number]
--- NOTE | 2021-01-25 14:21 | XRAY Report ---
PROCEDURE: Hip w/Pelvis 2-3V RT INDICATIONS: PAIN IN RIGHT HIP JOINT TECHNIQUE: AP pelvis with lateral view(s) of the bilateral hip(s). COMPARISON: None. FINDINGS: Bones: No fractures or dislocations. Pelvic ring appears intact. No suspicious bony lesions. Lumb ar spondylosis and facet arthropathy. Mild narrowing of the right and left hip joint space. Soft tissues: The visualized bowel gas pattern is normal. No suspicious soft tissue calcifications. Postsurgical changes and sutures seen in the right abdomen. IMPRESSION: Mild bilateral hip joint degeneration. If the patient's pain or other symptoms persist, consider further evaluation with MRI. Reviewed by: Zacarias Cabrales MD on 01/25/2021 2:20 PM PDT Approved by: Zacarias Cabrales MD on 01/25/2021 2:20 PM PDT Station ID: [id number]
== END 2021-01-25 10:19 | disposition home or self-care (01) ==
LOC: DI.S 10:18
PROVIDERS: ATTEND Nurse Practitioner Family
DX: M25.551 Pain in right hip (principal); M16.0 Bilateral primary osteoarthritis of hip

== ENCOUNTER 2021-02-07 13:04 | Outpatient (CLI) | payer MEDICARE, OTHER ==
--- NOTE | 2021-02-08 09:54 | Mammography Report ---
BILATERAL DIGITAL SCREENING MAMMOGRAM 3D/2D: 02/07/2021 CLINICAL: Routine screening. Comparison is made to exams dated: 12/23/2017 mammogram, 11/30/2016 mammogram, and 07/11/2015 mammogram - [facility]. The tissue of both breasts is heterogeneously dense. This may lower the sensitivity of mammography. No significant masses, calcifications, or other findings are seen in either breast. There has been no significant interval change. IMPRESSION: NEGATIVE There is no mammographic evidence of malignancy. A 1 year screening mammogram is recommended. This exam was interpreted at Station ID: [id number]. NOTE: For mammograms, a report in lay terms will be sent to the patient. Approximately 15% of breast malignancies will not be visualized mammographically. In the management of a palpable breast mass, a negative mammogram must not discourage biopsy of a clinically suspicious lesion. Electronically Signed By: Pete Wood M.D. [email or web address]/penrad:02/07/2021 15:38:05 ACR BI-RADS Category 1: Negative 3341F PARENCHYMAL PATTERN: (D) - The breast(s) demonstrate(s) heterogeneously dense fibroglandular yoni suazo. BI-RADS CATEGORY: (1) - 1 RECOMMENDATION: (ANNUAL) - Recommend routine annual screening mammography. [id number] 1 year screening LATERALITY: (B)
== END 2021-02-07 13:05 | disposition home or self-care (01) ==
LOC: DI.S 13:04
PROVIDERS: ATTEND Nurse Practitioner Family
DX: Z12.31 Encounter for screening mammogram for malignant neoplasm of breast (principal)

== ENCOUNTER 2022-07-20 09:00 | Outpatient (CLI) | payer MEDICARE, OTHER ==
[2022-07-20 23:09] LABS: BACTERIAL VAGINOSIS DNA NEGATIVE (NEGATIVE); CANDIDA GLABRATA DNA NEGATIVE (NEGATIVE); CANDIDA GROUP DNA NEGATIVE (NEGATIVE); CANDIDA KRUSEI DNA NEGATIVE (NEGATIVE); TRICHOMONAS VAGINALIS DNA NEGATIVE (NEGATIVE)
== END 2022-07-20 23:59 | disposition home or self-care (01) ==
LOC: LAB 09:00
PROVIDERS: ATTEND Nurse Practitioner
DX: N89.8 Other specified noninflammatory disorders of vagina (principal)
CPT/HCPCS: 81514

== ENCOUNTER 2022-07-26 08:05 | Outpatient (CLI) | payer MEDICARE, OTHER ==
[2022-07-26 08:25] LABS: HGB - HEMOGLOBIN 14.3 g/dL (12.0-16.0); MEAN CORPUSCULAR HEMOGLOBIN 30.3 pg (27.0-31.0); MEAN CORPUSCULAR HGB CONC 32.5 g/dL (32.0-36.0); MEAN CORPUSCULAR VOLUME 93.2 fL (81.0-99.0); MEAN PLATELET VOLUME 10.2 fL (7.9-10.8); RED BLOOD COUNT 4.72 10^6/uL (4.20-5.40); RED CELL DISTRIBUTION WIDTH 12.6 % (12.0-15.0); WHITE BLOOD COUNT 5.3 x10^3/uL (4.8-10.8)
[2022-07-26 08:39] LABS: ALBUMIN/GLOBULIN RATIO 1.4 (1.0-2.2); ALKALINE PHOSPHATASE 71 IU/L (42-121); ALT ALANINE AMINOTRANSFERASE 25 IU/L (10-60); AST ASPARTATE AMINOTRANSFERASE 27 IU/L (10-42); BILIRUBIN,TOTAL 0.5 mg/dL (0.2-1.0); BUN - BLOOD UREA NITROGEN 20 mg/dL (6-20); CALCIUM 9.2 mg/dL (8.5-10.3); CARBON DIOXIDE - CO2 25 mmol/L (21-32); CHLORIDE 106 mmol/L (101-111); CHOL/HDL RATIO 4.9 (<4.4); CHOLESTEROL 243 mg/dL; CREATININE 0.8 mg/dL (0.4-1.0); GFR - MDRD 71 (>89); GLUCOSE 131 mg/dL (70-100); HDL CHOLESTEROL 50 mg/dL; LDL CHOLESTEROL,CALCULATED 158 mg/dL; LDL/HDL RATIO 3.2 (<4.4); SODIUM 140 mmol/L (135-145); TOTAL PROTEIN 6.8 g/dL (6.7-8.2); TRIGLYCERIDES 176 mg/dL; VLDL CHOLESTEROL 35 mg/dL
[2022-07-26 08:51] LABS: THYROID STIMULATING HORMONE 2.22 uIU/mL (0.34-5.60)
[2022-07-26 08:53] LABS: FREE T4 (FREE THYROXINE) 0.98 ng/dL (0.58-1.64)
[2022-07-26 08:56] LABS: FERRITIN 42.3 ng/mL (11.0-306.8)
[2022-07-26 10:31] LABS: ESTIMATED AVERAGE GLUCOSE 120 mg/dL (70-100); HEMOGLOBIN A1c% 5.8 % (4.27-6.07)
== END 2022-07-26 08:06 | disposition home or self-care (01) ==
LOC: LAB 08:05
PROVIDERS: ATTEND Nurse Practitioner
DX: R53.83 Other fatigue (principal)
CPT/HCPCS: 36415; 80053; 80061; 82728; 83036; 83721; 84439; 84443; 85027

== ENCOUNTER 2022-08-02 08:00 | Outpatient (CLI) | payer MEDICARE, OTHER ==
--- NOTE | 2022-08-02 11:43 | XRAY Report ---
PROCEDURE: Hand 3 View BILAT INDICATIONS: BILAT HAND PAIN TECHNIQUE: 3 views of the hand(s) acquired. COMPARISON: None. FINDINGS: Bones: No fractures or dislocations. No suspicious bony lesions. Soft tissues: No suspicious soft tissue calcifications or masses. IMPRESSION: No acute bony abnormality. No significant degenerative change about the first CMC joint. Reviewed by: Dean Grove on 08/02/2022 11:42 AM PDT Approved by: Dean Grove on 08/02/2022 11:42 AM PDT Station ID: [id number]
== END 2022-08-02 23:59 | disposition home or self-care (01) ==
LOC: DI.WOS 08:00
PROVIDERS: ATTEND Physician Assistant Surgical
DX: M79.642 Pain in left hand (principal); M79.641 Pain in right hand

== ENCOUNTER 2022-08-21 10:14 | Outpatient (CLI) | payer MEDICARE, OTHER ==
--- NOTE | 2022-08-22 12:03 | Mammography Report ---
BILATERAL DIGITAL DIAGNOSTIC MAMMOGRAM 3D/2D: 08/21/2022 CLINICAL: Intermittent pain in left breast. Due for bilateral. Comparison is made to exams dated: 02/07/2021 mammogram, 12/23/2017 mammogram, 11/30/2016 mammogram, and 07/11/2015 mammogram - [facility]. Both breasts are heterogeneously dense, which may obscure small masses (category c / 51-75% glandular tissue). There are benign post operative findings in the right breast. No significant masses, calcifications, or other findings are seen in either breast. Right breast scar marker. There has been no significant interval change. Left breast pacemaker. IMPRESSION: BENIGN There is no mammographic evidence of malignancy. A 1 year screening mammogram is recommended. Exam findings were conveyed to the patient. Patient is advised to monitor for significant change. Cli nical follow-up as needed. Based on the Tyrer Cuzick model (a risk assessment model) the patients lifetime risk is 4.4% and her 10 year risk is 3.0%. According to the ACR, ACS, and NCCN guidelines, an annual breast MRI exam viola g with mammogram is recommended if the patients lifetime risk is 20% or greater. This exam was interpreted at Station ID: [id number]. NOTE: For mammograms, a report in lay terms will be sent to the patient. Approximately 15% of breast malignancies will not be visualized mammographically. In the management of a palpable breast mass, a negative mammogram must not discourage biopsy of a clinically suspicious lesion. Electronically Signed By: Rubén Paul M.D. [facility] [place]/:08/21/2022 10:46:47 letter sent: No_Letter ACR BI-RADS Category 2: Benign Finding(s) 3342F PARENCHYMAL PATTERN: (D) - The breast(s) demonstrate(s) heterogeneously dense fibroglandular parenchy ma. BI-RADS CATEGORY: (2) - 2 Mammogram [id number] 1 year screening LATERALITY: (B)
== END 2022-08-21 10:15 | disposition home or self-care (01) ==
LOC: DI 10:14
PROVIDERS: ATTEND Nurse Practitioner
DX: N64.4 Mastodynia (principal)

== ENCOUNTER 2022-11-08 07:58 | Day surgery (SDC) | payer MEDICARE, OTHER ==
--- NOTE | 2022-11-08 07:16 | ANESTHESIA ---
Pre-Anesthesia VS, & Labs - Diagnosis L senile combined cataract - Procedure L cataract extraction w IOL Height: 5 ft 3 in - NPO >8 hours - Is Patient ?: No - Lab Results Lab results reviewed: Yes Home Medications and Allergies Ibuprofen [Motrin] 600 mg PO Q6H PRN 07/22/19 SUMAtriptan succinate [Sumatriptan Succinate] 50 mg PO PRN PRN 07/22/19 Amlodipine Besylate [Norvasc] 2.5 mg PO BID 11/17/19 Venlafaxine ER [Effexor ER] 75 mg PO DAILY 11/17/19 lisinopriL [Lisinopril] 40 mg PO DAILY 11/17/19 Aspirin [Aspirin EC] 81 mg PO DAILY 03/02/20 Cholecalciferol (Vitamin D3) [Vitamin D3] 5,000 unit PO DAILY 03/02/20 Glucosamine HCl/Chondroitin [place] [Glucosamine-Chondroitin Cap] 2 each PO DAILY 03/02/20 Multivitamin/Iron/Folic Acid [Centrum Women Tablet] 1 each PO DAILY 03/02/20 [place]-3/Dha/Epa/Fish Oil [Fish Oil 1,200 mg Softgel] 1,200 mg PO DAILY 03/02/20 Omeprazole Magnesium 20 mg PO DAILY 03/02/20 Psyllium Husk [Fiber] 0.52 gm PO DAILY 03/02/20 Allergies/Adverse Reactions: Allergies Allergy/AdvReac Type Severity Reaction Status Date / Time ciprofloxacin [From Cipro] AdvReac Anaphylaxis Verified 12/07/20 17:02 ciprofloxacin HCl * AdvReac Anaphylaxis Verified 12/07/20 17:02 [From Cipro] codeine AdvReac Nausea Verified 12/07/20 17:02 metronidazole [From Flagyl] AdvReac Anaphylaxis Verified 12/07/20 17:02 Anes History & Medical History - Anesthetic History Anesthesia Complications: reports: No previous complications Family history of Anesthesia Complications: Denies Family history of Malignant Hyperthermia: Denies - Medical History Cardiovascular: reports: Hypertension, Arrhythmia, Other Pulmonary: reports: None Gastrointestinal: reports: Chronic diarrhea, Diverticulitis Urinary: reports: None Neuro: reports: CVA, Migraines Musculoskeletal: reports: None Endocrine/Autoimmune: reports: None Blood Disorders: reports: None Skin: reports: Eczema Smoking Status: Former smoker - Surgical History General: reports: Bowel surgery, Other Eyes Ears Nose Throat (EENT): reports: Cataracts Cardiothoracic: reports: Pacemaker, Other Gynecologic: reports: Hysterectomy Orthopedic: reports: Other Dermatologic: reports: Skin cancer surgery Exam General: Alert, Oriented x3, Cooperative Dental: WNL Mouth Openin Fingerbreadth Neck Mobility: Normal Mallampati classification: II Thyromental Distance: 4-6 cm Respiratory: Lungs clear, Normal breath sounds, No respiratory distress Cardiovascular: Regular rate Neurological: Normal speech Mental/Cognitive Status: Alert/Oriented X3, Normal for patient Cognitive Status: Within normal limits Plan Anesthesia Type: MAC Consent for Procedure(s) Verified and Reviewed: Yes Code Status: Attempt Resuscitation ASA classification: 2-Mild systemic disease Is this case an emergency?: No
[~2022-11-08 07:58] MED LIST changes: +CYCLOPENTOLATE 1% OPHTH DROPS 2 ML ONE
[2022-11-08] MEDS ORDERED: LACTATED RINGERS 1,000 ML IV ONE (08:36)
[2022-11-08] MEDS ORDERED: MIDAZOLAM 2 MG/2 ML VIAL ONE (08:54)
[2022-11-08] MEDS ORDERED: BSS/LIDOCAINE/EPINEPHRINE 1 ML VIAL ONE (08:56)
[2022-11-08] MEDS ORDERED: EPINEPHrine 1 MG/ML AMP ONE (08:56)
[2022-11-08] MEDS ORDERED: BRIMONIDINE 0.2% OPHTH DROPS 5 ML ONE (08:56)
[2022-11-08] MEDS ORDERED: TRIAMCIN/MOXIFLOX OPHTHALMIC 0.6 ML VIAL IO ONE ×2 (08:56→09:16)
[2022-11-08] MEDS ORDERED: TIMOLOL 0.5% OPHTH DROPS ONE (08:56)
[2022-11-08] MEDS ORDERED: fentaNYL 100 MCG/2 ML VIAL ONE (09:10)
[2022-11-08] MEDS ORDERED: BRIMONIDINE 0.2% OPHTH DROPS 5 ML OPTH ONE (09:15)
[2022-11-08] MEDS ORDERED: PROPARACAINE 0.5% OPHTH DROPS 15 ML EACHEYE ONE (09:16)
[2022-11-08] MEDS ORDERED: BSS/LIDOCAINE/EPINEPHRINE 1 ML SYRINGE IO ONE (09:16)
[2022-11-08] MEDS ORDERED: TIMOLOL 0.5% OPHTH DROPS OPTH ONE (09:16)
[2022-11-08] MEDS ORDERED: EPINEPHrine 1 MG/ML AMP IR ONE (09:16)
[2022-11-08] MEDS ORDERED: VANCOMYCIN OPHTH (TOPICAL) 10 MG/ML SYRINGE TOP ONE (09:17)
[2022-11-08] MEDS ORDERED: LACTATED RINGERS 950 ML IV ONE (09:25)
--- NOTE | 2022-11-08 09:26 | OPERATIVE REPORT ---
Operative Report - Other Other Information/Narrative: Date of Surgery: 11/08/22 Preop Dx: Visually significant cataract left eye. Cataract surgery was performed in the right eye on . Postop Dx: Same Procedure: Phacoemulsification with posterior chamber intraocular lens implant left eye Surgeon: Dr. Hernán Villela Anesthesia: Monitored anesthesia care Complications: None Operative Indications: This is a 72-year-old F with progressive vision loss in the left eye due to 2+ nuclear sclerotic and 2+ cortical cataract. Best corrected visual acuity was 20/40 with glare to 20/250 vision in the left eye. Indications for surgery were: - Overall decrease in vision - Difficulty seeing words on a computer screen - Difficulty reading - Difficulty seeing words, closed captions, or game scores on TV - Difficulty seeing street signs - Difficulty driving in low light or at night - Difficulty driving at night because of headlights from other vehicles - Difficulty with glare or bright lights in any situation The patient was consented at length concerning the risks and benefits of cataract surgery after which the patient expressed a desire to proceed with surgery. Operative Procedure: The patient was taken into OR#3 and placed under monitored anesthesia care. A surgical time-out was conducted confirming correct patient, correct procedure, and correct surgical site. The patient was given topical anesthesia and then prepped and draped in the usual sterile fashion. The eye was entered at the 6 and 3 oclock positions. Intracameral Shugarcaine was injected into the anterior chamber followed by a dispersive viscoelastic. A continuous-tear curvilinear capsulorhexis was performed. The nucleus was hydrodissected and phacoemulsified. The cortex was evacuated using automated infusion and aspiration. A cohesive viscoelastic was injected into the capsular bag and a 23.0 diopter intraocular lens was inserted into the bag. Infusion and aspiration were used to evacuate the viscoelastic materials from the eye. The wounds were hydrated and the eye inflated to physiologic pressure using balanced salt solution. Approximately 0.25ml of a mixture of triamcinolone and moxifloxacin was injected trans-sclerally into the vitreous in the inferotemporal quadrant using a 30 gauge cannula. An additional 0.25ml of a mixture of triamcinolone and moxifloxacin was injected subconjunctivally in the superior quadrant for infection and inflammation prophylaxis. Wound integrity was checked with Weck-Kimi sponges. The patient was taken from the operating room in good condition and given post-op instructions.
--- NOTE | 2022-11-08 09:28 | ANESTHESIA POST OP EVALUATION ---
Anesthesia Post Eval - Post Anesthesia Eval Vitals: Last Vital Signs Temp 36.5 C 11/08/22 09:25 Pulse 60 11/08/22 09:25 Resp 14 11/08/22 09:25 BP 105/64 11/08/22 09:25 Pulse Ox 94 11/08/22 09:25 O2 Flow Rate CV Function Including HR & BP: Stable Pain Control: Satisfactory Nausea & Vomiting: Negative Mental Status: Baseline Respiratory Status: Airway Patent Hydration Status: Satisfactory Anesthesia Complications: None
[2022-11-08 09:45] VITALS: BP 95/64; O2SAT 95
== END 2022-11-08 07:59 | disposition home or self-care (01) ==
LOC: SDS 07:58
PROVIDERS: ATTEND Ophthalmology
DX: H25.812 Combined forms of age-related cataract, left eye (principal); I10 Essential (primary) hypertension; Z87.891 Personal history of nicotine dependence
CPT/HCPCS: 66984; A9270; J3490; J7120

== ENCOUNTER → 2023-07-24 | Outpatient (CLI) | payer MEDICARE, OTHER | LOC: SC 13:38 | PROVIDERS: ATTEND Nurse Practitioner Family | DX: Z53.9 Procedure and treatment not carried out, unspecified reason (principal) ==

== ENCOUNTER 2023-08-29 11:42 | Outpatient (CLI) | payer MEDICARE, OTHER ==
[2023-08-29 14:38] LABS: HCT - HEMATOCRIT 42.2 % (37.0-47.0); HGB - HEMOGLOBIN 13.8 g/dL (12.0-16.0); MEAN CORPUSCULAR HEMOGLOBIN 30.6 pg (27.0-31.0); MEAN CORPUSCULAR HGB CONC 32.7 g/dL (32.0-36.0); MEAN CORPUSCULAR VOLUME 93.6 fL (81.0-99.0); MEAN PLATELET VOLUME 10.6 fL (7.9-10.8); RED BLOOD COUNT 4.51 10^6/uL (4.20-5.40); RED CELL DISTRIBUTION WIDTH 13.1 % (12.0-15.0); WHITE BLOOD COUNT 6.5 x10^3/uL (4.8-10.8)
[2023-08-29 15:14] LABS: ESTIMATED AVERAGE GLUCOSE 105 mg/dL (70-100); HEMOGLOBIN A1c% 5.3 % (4.27-6.07)
[2023-08-29 15:43] LABS: ALBUMIN 4.1 g/dL (3.2-5.5); ALBUMIN/GLOBULIN RATIO 1.8 (1.0-2.2); ALKALINE PHOSPHATASE 59 IU/L (42-121); ALT ALANINE AMINOTRANSFERASE 19 IU/L (10-60); AST ASPARTATE AMINOTRANSFERASE 21 IU/L (10-42); BILIRUBIN,TOTAL 0.5 mg/dL (0.2-1.0); BUN - BLOOD UREA NITROGEN 15 mg/dL (6-20); CALCIUM 9.9 mg/dL (8.5-10.3); CARBON DIOXIDE - CO2 27 mmol/L (21-32); CHLORIDE 105 mmol/L (101-111); CHOL/HDL RATIO 4.5 (<4.4); CHOLESTEROL 212 mg/dL; CREATININE 0.8 mg/dL (0.6-1.3); GFR - MDRD 71 (>89); GLUCOSE 120 mg/dL (74-104); HDL CHOLESTEROL 47 mg/dL; LDL CHOLESTEROL,CALCULATED 130 mg/dL; LDL/HDL RATIO 2.8 (<4.4); POTASSIUM 3.7 mmol/L (3.5-4.5); SODIUM 138 mmol/L (135-145); TOTAL PROTEIN 6.4 g/dL (6.4-8.9); TRIGLYCERIDES 175 mg/dL (48-352); VLDL CHOLESTEROL 35 mg/dL
[2023-08-29 16:11] LABS: THYROID STIMULATING HORMONE 1.83 uIU/mL (0.34-5.60)
[2023-08-29 16:14] LABS: FERRITIN 34.8 ng/mL (11.0-306.8)
== END 2023-08-29 11:43 | disposition home or self-care (01) ==
LOC: LAB.S 11:42
PROVIDERS: ATTEND Nurse Practitioner
DX: I10 Essential (primary) hypertension (principal); R63.5 Abnormal weight gain; H57.9 Unspecified disorder of eye and adnexa; R73.02 Impaired glucose tolerance (oral)
CPT/HCPCS: 36415; 80053; 80061; 82728; 83036; 83721; 84439; 84443; 85027